=== PATIENT | female | born 1965 | race Two or more races ===

== ENCOUNTER 2025-04-01 12:57 | Outpatient (CLI) | payer OTHER, SELFPAY ==
--- NOTE | 2025-04-01 13:00 | MM_ITS ---
PROCEDURE INFORMATION: Exam: MG Bilateral Screening 3D Mammography Exam date and time: 04/01/2025 1:09 PM Age: 59 years old Clinical indication: Screening exam TECHNIQUE: Imaging protocol: Bilateral Screening tomosynthesis and 2D mammography including computer-aided detection (CAD) when performed. COMPARISON: No relevant prior studies available. FINDINGS: MAMMOGRAPHY: Breast composition: There are scattered areas of fibroglandular density. Mass: No suspicious masses. Architectural distortion: None. Calcifications: No suspicious calcifications. Asymmetric density: None. Skin thickening: None. Axillary adenopathy: None. IMPRESSION: No mammographic evidence of malignancy. Annual screening is recommended unless otherwise clinically indicated. ASSESSMENT: BI-RADS 1, Negative.
--- NOTE | 2025-04-01 13:00 | CT_ITS ---
FINAL REPORT TECHNIQUE: Thin section axial images were obtained from skull base to vertex without contrast. Coronal reconstruction images were obtained from the axial data. Exam was performed using dose reduction techniques such as automated exposure control, adjustment of the mA and kV according to patient size, and use of iterative reconstruction technique. CLINICAL HISTORY: fall x 1 year ago. left side pain, confusion and memory loss FINDINGS: There is no mass effect or midline shift. There is no hydrocephalus. There is no intracranial hemorrhage. The posterior fossa is without acute abnormality. The basilar cisterns are preserved. The soft tissues are without acute abnormality. No acute osseous abnormality is identified. IMPRESSION: No acute intracranial abnormality. Reviewed, Interpreted and Dictated by Judith Li MD Transcribed by Tashia Wilson Authenticated and [facility]
== END 2025-04-01 23:59 | disposition home or self-care (01) ==
LOC: RAD 12:57
PROVIDERS: PCP Nurse Practitioner Family; Visit Provider Nurse Practitioner Family
DX: Z12.31 Encounter for screening mammogram for malignant neoplasm of breast (principal); R92.323 Mammographic fibroglandular density, bilateral breasts; R41.3 Other amnesia; Z91.81 History of falling; R41.0 Disorientation, unspecified
CPT/HCPCS: 70450; 77063; 77067

== ENCOUNTER 2025-05-21 08:19 | Day surgery (SDC) | payer OTHER, SELFPAY ==
[2025-05-19 14:55] VITALS: BMI 39.1
[2025-05-21] VITALS (7 sets, daily range): BP systolic 99–156; BP diastolic 56–89; PULSE 82–106; RESP 16–18; TEMP 36.1–36.4; O2SAT 93–100; BMI 39.1
--- NOTE | 2025-05-21 07:11 | EXP.HP ---
History of Present Illness *Admission Date: 05/21/25 *Reason for visit:: Screening colonoscopy *History of present illness: Mrs. Anne is a 59-year-old female who is here for initial screening colonoscopy. The examination is deemed medically necessary for screening colonoscopy. The patient has been seen, interviewed and examined prior to the procedure by both myself and the anesthesia provider. [facility] Disclaimer: The information contained in this section may have been updated after the patient was seen, as this information can be updated by other users. Medical History COPD (chronic obstructive pulmonary disease) Sleep apnea Anxiety Depression History of cataract Hyperlipidemia Surgical History Delivery by section S/P carpal tunnel release Family History Other Family history of cancer Social History (Updated 05/21/25 @ 09:13 by Damaso Jaramillo CRNA) Smoking Status: Current some day smoker alcohol intake: current substance use type: denies use current occupational status: unemployed Travel in the last 8 weeks?: None Have you lived/traveled outside [place] in past 30 days?: No Contact w/someone who lives/traveled outside US past 30 days?: No Exposure to someone with infectious disease in past 14 days?: No Do you have a fever (greater than 100.4 F or 38 C)?: No Have you tested positive for COVID-19?: No Exposed to someone with COVID-19 in past 14 days?: No Do you have a sore throat?: No Do you have a cough?: No Do you have any weakness?: No Are you experiencing any nausea/vomitting?: Yes Do you have any diarrhea?: No Are you experiencing any unusual bleeding?: No Do you have any muscle aches/pain?: No Do you have any abdominal pain?: No Are you experiencing loss of taste or smell?: No Review of Systems Review of Systems Review of systems (narrative): Negative *Cardiovascular Comments: Negative *Gastrointestinal Comments: Negative *Genitourinary Comments: Negative *Musculoskeletal Comments: Negative *Neurologic Comments: Negative Meds Home Medications and Allergies Home Medications ?Medication ?Instructions ?Recorded ?Confirmed ?Type budesonide-formoterol HFA 80 1 inh inhalation BID 05/19/25 05/19/25 History mcg-4.5 mcg/actuation aerosol inhaler (Symbicort) diclofenac sodium 75 mg 75 mg PO BID 05/19/25 05/19/25 History tablet,delayed release quetiapine 25 mg tablet 25 mg PO HS 05/19/25 05/19/25 History rosuvastatin 10 mg tablet 10 mg PO DAILY 05/19/25 05/19/25 History New Prescriptions to Start Prescriptions: Allergies Allergy/AdvReac Type Severity Reaction Status Date / Time No Known Allergies Allergy Verified 05/21/25 08:46 Exam Data for Last 24 hours I & O for Last 24 hours: Intake & Output 05/18/25 05/19/25 05/20/25 05/21/25 23:59 23:59 23:59 23:59 Weight 235 lb *Routine HEENT Exam Head: Present normocephalic Eye: Present EOMI and PERRL ENT: Present mucous membranes moist *Routine Neck Exam Neck: Present supple *Routine Respiratory Exam Respiratory: Present CTA bilaterally *Routine Cardiovascular Exam Cardiovascular: Present RRR *Routine Abdominal Exam Abdominal: Present soft and normoactive bowel sounds; Absent tenderness *Routine Rectal Exam Rectal:: deferred *Routine Genitalia Exam Genitalia:: deferred *Routine Extremities Exam Extremities: Absent cyanosis, clubbing or edema *Routine Skin Exam Skin: Present warm; Absent rash *Routine Neurological Exam Neurological: Present alert and oriented X3 Assessment and Plan *Assessment and plan (1) Screening for colon cancer: Status: Acute Category: Medical Code(s): Z12.11 - Encounter for screening for malignant neoplasm of colon Plan A/P: 1. Screening for colon cancer is the preprocedural diagnosis. The patient will be anesthetized/sedated using MAC sedation. The patient has been seen and examined. Cardiac and lung assessment prior to the examination is stable. Proceed with planned screening colonoscopy.
[2025-05-21] MEDS: LACTATED RINGERS 1000ML 1,000 ML 50 ML IV (08:45)
[2025-05-21] MEDS: ONDANSETRON 4MG/2ML VIAL 4 MG IV (08:50)
--- NOTE | 2025-05-21 09:12 | P.PNANES_ITS ---
[facility] Disclaimer: The information contained in this section may have been updated after the patient was seen, as this information can be updated by other users. Medical History COPD (chronic obstructive pulmonary disease) Sleep apnea Anxiety Depression History of cataract Hyperlipidemia Surgical History Delivery by section S/P carpal tunnel release Family History Other Family history of cancer Social History (Updated 05/21/25 @ 08:43 by Chitra Panda RN) Smoking Status: Current some day smoker alcohol intake: current substance use type: denies use current occupational status: unemployed Travel in the last 8 weeks?: None [facility] Anesthesia Checklist Patient Identification Patient Identification: Arm Band and Verbal (Name & ) Structural Data Admitted From: Home Planned Operative Procedure/s: colonscopy Verified Documents: Surgical Consent NPO Status Verified Time NPO: 00:00 Additional verifications Anesthesia Reactions: No Airway Assessment Mallampati Score:: Class II C-Spine Mobility Assessed: Yes TMJ Mobility Assessed: Yes Dentition: Edentulous Neurological Assessment Level of Consciousness: Awake, Alert and Appropriate Hx Seizures: No Numbness or tingling in extremities: No Anesthesia Plan Anesthesia Risk discussed: Yes Anesthesia Plan: Verified ASA Class: II Anesthesia Type: MAC
--- NOTE | 2025-05-21 09:24 | HMH.PROCNOTE ---
[facility] Procedure Note Date: 05/21/25 Time: 10:08 Procedure Note:: Colonoscopy Procedure Report: Colonoscopy with EMR (endoscopic mucosal resection (submucosal injection, snare cautery and Endo Clip placement)) and cold snare polypectomy Endoscopist: Rito Zaldivar II, MD Referring physician: JOHNY Capellan, [facility], [address] [facility] [place] [address] Date of Procedure: May 21, 2025 Equipment: Olympus [id number] adult colonoscope Sedation: MAC sedation Indication: Mrs. Anne is a 59-year-old female who is here for initial screening colonoscopy. She reports no rectal bleeding, weight loss or family history of colon cancer. Since COVID, she has had some bowel urgency and diarrhea. She also has had intermittent right sided abdominal pain for years that radiates into the right flank. Procedure: Prior to the procedure, a history and physical exam was performed, and patient's medications and allergies were reviewed. The risks, benefits and alternatives of the sedation and procedure were discussed with the patient. All questions were answered and informed consent was obtained. The patient was brought to the procedure room. Patient identification and proposed procedure were verified by the physician and the nurse. The patient was placed in a left lateral decubitus position and the scope was passed under direct vision. Throughout the procedure, the patient's blood pressure, pulse, and oxygen saturations were monitored continuously. The colonoscopy was accomplished without difficulty. The patient tolerated the procedure well. Findings: On digital rectal examination there was normal rectal tone. There were no external hemorrhoids. The colonoscope was introduced through the anal canal to the rectum and advanced to the cecum. The ileocecal valve and appendiceal orifice were identified. The scope was advanced a short distance into the ileum which appeared grossly normal. The scope was then withdrawn into the colon. There were 4 polyps (cecum x 1 (6 mm), ascending x 1 (8 mm) and descending x 2 (4 and 5 mm)). These were all removed via cold snare polypectomy. There were scattered diverticuli throughout the descending and sigmoid colon (LEFT colon). Within the rectum was a large bulbous 3.2 cm polyp with adenomatous/villous macroscopic appearance consistent with a large tubulovillous adenoma of the rectum. This was approximately 3 cm from the anal verge. The base of the polyp was injected with 10 mL of Eleview and an additional 5 to 7 mL of saline to raise the polyp submucosally. The polyp was removed in piecemeal resection in its entirety using snare cautery and at the end cold snare polypectomy. After complete removal, the polypectomy site was closed with 3 endoclips with closure of the polypectomy site. Upon retroflexion within the rectum there were grade 1-2 internal hemorrhoids. The preparation was excellent throughout with [place] Preparation Score of 9. The cecal time was 22 minutes. Impression: 1. Large 3.2 cm rectal polyp (probable tubulovillous adenoma) status post EMR removal 2. Additional diminutive colonic polyps x 4 3. Mild left-sided diverticulosis 4. Grade 1-2 internal hemorrhoids Plan: I will follow-up the polyp histology and recommend repeat sigmoidoscopy in 3 to 6 months to ensure complete excision of the large rectal advanced adenoma. I will discuss the findings with the patient and family.
--- NOTE | 2025-05-21 10:19 | ECG_ITS ---
APPROVED REPORT Exam: Resting ECG HR:97 bpm ECG Measurements Heart Rate 97 AXES NV 137 P 39 QRSd 79 QRS 18 QT 338 T 71 QTc 393 Conclusion SINUS RHYTHM WITH SINUS ARRHYTHMIA LOW QRS VOLTAGE IN PRECORDIAL LEADS [QRS DEFLECTION < 1.0 mV IN CHEST LEADS] BORDERLINE ECG UNCONFIRMED REPORT Electronically signed by : Spenser Greene MD 05/23/2025 07:56:25
[2025-05-21 10:48] LABS: Chloride 106 mmol/L (98-107); Potassium 4.5 mmoL/L (3.5-5.1); Sodium 142 mmol/L (136-145)
[2025-05-21 10:51] LABS: Anion Gap 11.5 mEq/L (5-15); Blood Urea Nitrogen 14 mg/dl (7-17); Calcium 10.1 mg/dl (8.4-10.2); Carbon Dioxide 29 mmol/L (22.0-30.0); Creatinine Clearance Estimated 113 mL/min (50-200); Creatinine,Serum 0.90 mg/dl (0.52-1.04); Estimated Glomerular Filt Rate 64 ml/min (>60); GFR (African American) 78 ML/MIN (>60); Glucose 113 mg/dl (74-100)
== END 2025-05-21 11:07 | disposition home or self-care (01) ==
PROVIDERS: Nurse Anesthetist, Certified Registered; PCP Nurse Practitioner Family; Visit Provider Internal Medicine Gastroenterology
PROC: 0DJD8ZZ Inspection of Lower Intestinal Tract, Via Natural or Artificial Opening Endoscopic (ICD-10-PCS; CPT 45378; principal; 2025-05-21 09:30)
DX: Z12.11 Encounter for screening for malignant neoplasm of colon (principal); D12.8 Benign neoplasm of rectum; D12.0 Benign neoplasm of cecum; D12.2 Benign neoplasm of ascending colon; K63.5 Polyp of colon; K57.30 Diverticulosis of large intestine without perforation or abscess without bleeding; K64.0 First degree hemorrhoids; K64.1 Second degree hemorrhoids; J44.9 Chronic obstructive pulmonary disease, unspecified; E78.5 Hyperlipidemia, unspecified; F17.200 Nicotine dependence, unspecified, uncomplicated; Z79.899 Other long term (current) drug therapy
CPT/HCPCS: 45385; 45390; 36415; 80048; 93005; J2003; J2405; J2704; J7120

== ENCOUNTER 2025-07-16 09:59 | Outpatient (CLI) | payer OTHER, SELFPAY ==
--- OUTSIDE RECORDS SUMMARY | 2025-07-10 10:40 | XMS_ITS | Encounter Summary ---
Author Organization [facility] Address [address] [place] [address] Care Team Providers Care Vein Pumper Name Role Phone Cristal Kramer APRN Primary Care Provider [phone] Reason for Referral * Imaging (Routine) - Authorized Specialty Diagnoses / Procedures Referred By Bang wei Referred To Contact Diagnoses RUQ pain Procedures US Abdomen RUQ [place] [address] Phone: tel: fax: Referral ID Status Reason Start Date Expiration Date V isits Requested Visits Authorized [id number] Authorized 07/10/2025 01/09/2027 1 1 Reason for Visit * Reason Comments Flank Pain Joint Swelling knee Encounter Details Date Type Department Care Team (Late st Contact Info) Description 07/10/2025 10:40 AM EDT Office Visit [facility] [address] [place] [address] Cristal Kramer APRN [address] [place] [address] Dyslipidemia (Primary Dx); Mixed anxiety [...] any time in the past 12 m [facility], were you homeless or living in a fci (including now)? Patient declined 03/05/2025 AUDIT-C Answer [...] Recorded In the past 12 months has [employer], gas, oil, or water [employer] threatened to shut off services in your [...] Indicated 07/10/2025 10:37 AM Varsha Payne * If you checked off any problems on this questionnaire so far, Question Answer Date of Assessment Author How difficult have these problems made it for you to do your work, take care of things at home, or get along with other people? Somewhat difficult 07/10/2025 10:37 AM Brenden Payne i * How difficult have these problems made it for you to do your work, take care of things at home, or get along with other people? Answer Date of Assessment Author Somewhat difficult 07/10/2025 10:37 AM Varsha Payne * Question Answer Date of Assessment Author 1. Wish to be (Past 1 Month) No 025 10:37 AM EDT Varsha Buck 2. Non-Specific Active Suici justice Thoughts (Past 1 Month) No 07/10/2025 10:37 AM EDT Varsha Buck 6. Suicidal Behavior (Lifetime) No 5 10:37 AM EDT Varsha Buck documented as of this encounter Miscellaneous Notes * Progress Notes - Cristal Kramer, ROLLER MILL OPERATOR - 07/10/2025 10:40 AM EDT Subjective Patient [...] EDT Procedure Visit Obstetrics & Gynecology [address] [place] [address] Fred Dave MD [address] [place] [address] Scheduled Orders Name Type Priority [...] Ketones, Urine Trace(A) Negative mg/dL POCT Specific [place], Urine 1.025 POCT Blood, Urine Negative Negative POCT pH, Urine 5.5 5.0 to 8.0 POCT Protein, Urine Trace(A) Negative mg/dL POCT Urobilinogen, Urine 1 0.2, 1 E.U./dL POCT Nitrite, Urine Negative Negative POCT Leukocyte Esterase, Urine Negative Negative Test Strip Lot Number [id number] Test Strip Lot Expiration [id number] Urine Urine specimen obtained by clean catch [...] documented as of this encounter Care Teams Vein Pumper Relationship Specialty Start Date End Date Cristal Kramer, [place] [address] PCP - General Family Medicine 03/05/25 documented as of this encounter
--- OUTSIDE RECORDS SUMMARY | 2025-07-16 10:02 | XMS_ITS | Encounter Summary ---
Author Organization [facility] Address [address] [place] [address] Care Team Providers Care Intermodal Customer Service Name Role Phone Cristal Kramer APRN Primary Care Provider [phone] Kathleen Ann Unavailable Unavailable Reason for Visit * Reason Comments Health Maint. RR Encounter Details Date Type Department Care Team (Late st Contact Info) Description 07/14/2025 Patient Outreach [facility] [address] [facility], [address] [place] [address] Kathleen Ann Health Maint. (RR) Social History Tobacco Use Types Packs/Day Years Used Date Smoking Tobacco: Former Cigarettes 2 - 1987 Passive Smoke Exposure: Past Smokeless Tobacco: Never Comments:Does use a vape pen Alcohol Use [...] any time in the past 12 m [facility], were you homeless or living in a [facility] (including now)? Patient declined 03/05/2025 AUDIT-C Answer [...] Recorded In the past 12 months has th e electric, gas, oil, or water company threatened to shut off services in your home? Patient declined 03/05/2025 Comments No Sex and Gender Information Value Date Recorded Sex Assigned at Not on file Legal Sex Female 1:45 PM EDT Gender Identity Not on file Sexual Orientation Not on file documented as of this encounter Miscellaneous Notes * Progress Notes - Kathleen Ann - 07/14/2025 10:49 AM EDT Records Request Outreach 07/14/2025 Records Request [x] Needed: Yes [x] Records Requested (check all that apply) [x] CRC [] Mammogram [] PAP [] Immunizations [] Other: Action Plan [x] Outreach completed: Follow-up Outcome: Received colonoscopy records from [facility] via fax. [x] RR Status: Received [x] No follow-up needed Follow-up scheduled for: N/A Additional Information (if needed): N/A Completed by: Kathleen Ann documented in this encounter Plan of Treatment Upcoming Encounters Date Type Department Care Team (Late st Contact Info) Description 05/18/2026 1:30 PM EDT Procedure Visit Obstetrics & Gynecology [address] [place] [address] Fred Dave MD [address] [place] [address] documented as of this encounter Visit Diagnoses Not on filedocumented in this encounter Additional Health Concerns Assessment Noted Time PHQ-9 Depression Total Score: 18 025 10:37 AM EDT A fall risk assessment has been complete d for the patient 05/16/2025 1:28 PM EDT A Body Mass Index follow-up plan has been documented for the patient 07/13/2025 7:51 PM EDT documented as of this encounter Care Teams Intermodal Customer Service Relationship Specialty Start Date End Date Cristal Kramer APRN [address] [place] [address] PCP - General Family Medicine 03/05/25 Wages, Kathleen Mota Clinical A Auxiliary 07/14/2507/14 documented as of this encounter
--- OUTSIDE RECORDS SUMMARY | 2025-07-16 10:02 | XMS_ITS | Encounter Summary ---
Author Organization [facility] Address [address] [place] [address] Care Team Providers Care Crutcher Helper Name Role Phone Cristal Kramer APRN Primary Care Provider [phone] Encounter Details Date Type Department Care Team (Latest Contact Info) Description 07/10/2025 Travel Social History Tobacco Use Types Packs/Day Years Used Date Smoking Tobacco: Former Cigarettes 1987 Passive Smoke Exposure: Past Smokeless Tobacco: [...] any time in the past 12 m [facility], were you homeless or living in a skilled nursing (including now)? Patient declined 03/05/2025 AUDIT-C Answer [...] on file documented as of this encounter Functional Status * Over the past 2 weeks, how often have you been bothered by any of the following problems? Question Answer Date of Assessment Author Victoria interest or pleasure in doing things Several days 07/10/2025 10:37 AM Brenden Payne i Feeling down, depressed, or hopeless More than half the days 07/10/2025 10:37 AM Varsha Payne Patient Health Questionnaire-2 Score 3 07/10/2025 10:37 AM Varsha Payne * Question Answer Date of Assessment Author Trouble falling or staying asleep, or sleeping too much Nearly every day 07/10/2025 10:37 AM Varsha Payne Feeling tired or having little energy More than half the days 07/10/2025 10:37 AM Varsha Payne A Poor appetite or overeating More than aguilar lf the days 07/10/2025 10:37 AM Varsha Payne A Feeling bad about yourself - or that you are a failure or have let yourself or your family down More than half the days 07/10/2025 10:37 AM Varsha Payne Trouble concentrating on things, such as reading the newspaper or watching television Nearly every day 07/10/2025 10:37 AM Varsha Payne A Moving or speaking so slowly that other [...] other people? Somewhat difficult 07/10/2025 10:37 AM EDT Heber, Lesl i A * How difficult have these problems made it for you to do your work, take care of things at home, or get along with other people? Answer Date of Assessment Author Somewhat difficult 07/10/2025 10:37 AM EDT Varsha Buck * Question Answer Date of Assessment Author 1. Wish to be (Past 1 Month) No 025 10:37 AM EDT Varsha Bukc 2. Non-Specific Active Suici justice Thoughts (Past 1 Month) No 07/10/2025 10:37 AM EDT Varsha Buck 6. Suicidal Behavior (Lifetime) No 10:37 AM EDT Varsha Buck documented as of this encounter Plan of Treatment Upcoming Encounters Date Type Department Care Team (Late st Contact Info) Description 05/18/2026 1:30 PM EDT Procedure Visit Obstetrics & Gynecology [address] [place] [address] Fred Dave MD [address] [place] [address] documented as of this encounter [...] documented as of this encounter Care Teams Crutcher Helper Relationship Specialty Start Date End Date Cristal Kramer, MANAGER BODY [address] [place] [address] PCP - General Family Medicine 03/05/25 documented as of this encounter
--- OUTSIDE RECORDS SUMMARY | 2025-07-16 10:02 | XMS_ITS | Encounter Summary ---
Author Organization [facility] Address [address] [place] [address] Care Team Providers Care Brooch Maker Novelty Name Role Phone Cristal Kramer APRN Primary Care Provider [phone] Kathleen Ann Unavailable Unavailable Reason for Visit * Reason Comments Med Refill Encounter Details Date Type Department Care Team (Late st Contact Info) Description 04/24/2025 Refill [facility] [address] [place] [address] Cristal Kramer, KHADIJAH [address] [place] [address] Vitamin D deficiency Social History Tobacco Use Types Packs/Day Years Used Date Smoking Tobacco: Former Cigarettes 1987 Passive Smoke Exposure: Past Smokeless Tobacco: Never Comments:Does use a vape pen Alcohol Use Standard Drinks/Week Comments Yes 4 (1 standard drink = 0.6 oz pure alcohol) drank x 20 years. Havent drank in a few months Humiliation, [...] Answer Date Recorded Patient Health Questionnaire-2 Score 0 03/05/2025 Hunger Vital Sign Answer Date Recorded Within [...] Answer Date Recorded Patient Health Questionnaire-9 Score 0 03/05/2025 Housing Stability Vital Sign Answer Casey e Recorded In the last 12 months, was t here a time when you were not able to pay the mortgage or rent on time? Patient declined 03/05/20 25 In the past 12 months, how m any times have you moved where you were living? 1 03/05/2025 At any time in the past 12 m [facility], were you homeless or living in a alf (including now)? Patient declined 03/05/2025 Safety and Environment Answer Date Germán rded [...] in your home? Patient declined 03/05/2025 Comments Unknown Sex and Gender Information Value Date Recorded Sex Assigned at Not on file Legal Sex Female 1:45 PM EDT Gender Identity Not on file Sexual Orientation Not on file documented as of this encounter Plan of Treatment Upcoming Encounters Date Type Department Care Team (Safia Contact Info) Description 05/18/2026 1:30 PM EDT Procedure Visit Obstetrics & Gynecology [address] [place] [address] Fred Dave MD [address] [place] [address] documented as of this encounter Visit Diagnoses Diagnosis Vitamin D deficiency documented in this encounter Additional Health Concerns Assessment Noted Time PHQ-9 Depression Total Score: 0 03/05/20 1:14 PM EDT A Body Mass Index follow-up plan has been documented for the patient 04/02/2025 3:54 PM EDT documented as of this encounter Care Teams Brooch Maker Novelty Relationship Specialty Start Date End Date Cristal Kramer APRN [address] [place] [address] PCP - General Family Medicine 03/05/25 Kathleen Ann Clinical Sales And Management Trainee 07/14/2507/14 documented as of this encounter
--- OUTSIDE RECORDS SUMMARY | 2025-07-16 10:02 | XMS_ITS | Encounter Summary ---
Author Organization [facility] Address [address] [place] [address] Care Team Providers Care Plastic And Reconstructive Surgeon Name Role Phone Cristal Kramer APRN Primary Care Provider [phone] Encounter Details Date Type Department Care Team (Latest Contact Info) Description 07/08/2025 Travel Social History Tobacco Use Types Packs/Day [...] Date Recorded Patient Health Questionnaire-2 Score 0 05/16/2025 Hunger Vital Sign Answer Date Recorded Within [...] any time in the past 12 m [facility], were you homeless or living in a [place] [facility] care facility (including now)? Patient declined 03/05/2025 AUDIT-C Answer [...] Visit Obstetrics & Gynecology [address] [place] [address] Fred Dave MD [address] [place] [address] documented as of this encounter Visit Diagnoses Not on filedocumented in this encounter Additional Health Concerns Assessment Noted Time PHQ-9 Depression Total Score: 0 03/05/20 1:14 PM EDT A fall risk assessment has been complete d for the patient 05/16/2025 1:28 PM EDT A Body Mass Index follow-up plan has been documented for the patient 05/16/2025 1:55 PM EDT documented as of this encounter Care Teams Plastic And Reconstructive Surgeon Relationship Specialty Start Date End Date Cristal Kramer APRN [address] [place] [address] PCP - General Family Medicine 03/05/25 documented as of this encounter
--- OUTSIDE RECORDS SUMMARY | 2025-07-16 10:02 | XMS_ITS | Encounter Summary ---
Author Organization [facility] Address [address] [place] [address] Care Team Providers Care Physical Education Professor Name Role Phone Cristal Kramer INTERACTIVE MEDIA MARKETING SPECIALIST Primary Care Provider [phone] Reason for Visit * Reason Onset Date Comments Prior-authorization/insurance Verification 05/27 Encounter Details Date Type Department Care Team (Late st Contact Info) Description 05/27/2025 Telephone [facility] Medicine [address] [place] [address] Cristal Kramer, INTERACTIVE MEDIA MARKETING SPECIALIST [address] [place] [address] Prior-authorization/ins urance Verification Social History Tobacco Use Types Packs/Day Years [...] any time in the past 12 m [facility], were you homeless or living in a senior living (including now)? Patient declined 03/05/2025 AUDIT-C Answer [...] EDT Procedure Visit Obstetrics & Gynecology [address] [place] [address] Fred Dave MD [address] [place] [address] documented as of this encounter [...] documented as of this encounter Care Teams Physical Education Professor Relationship Specialty Start Date End Date Cristal Kramer APRN [address] [place] [id number] PCP - General Family Medicine 03/05/25 documented as of this encounter
--- OUTSIDE RECORDS SUMMARY | 2025-07-16 10:02 | XMS_ITS | Encounter Summary ---
Author Organization Address [address] [place] [address] Care Team Providers Care Dust Mixer Name Role Phone Cristal Kramer GLOVE CUTTER Primary Care Provider [phone] Kathleen Ann Unavailable Unavailable Reason for Visit * Reason Comments Med Refill Encounter Details Date Type Department Care Team (Late st Contact Info) Description 06/23/2025 Refill [facility] [address] [place] [address] Cristal Kramer, KHADIJAH [address] [place] [address] Bilateral primary osteoarthritis of knee Social History Tobacco Use Types Packs/Day Years [...] any time in the past 12 m [facility], were you homeless or living in a half-way (including now)? Patient declined 03/05/2025 AUDIT-C Answer [...] EDT Procedure Visit Obstetrics & Gynecology [address] [place] [address] Fred Dave MD [address] [place] [address] documented as of this encounter Visit Diagnoses Diagnosis Bilateral primary osteoarthritis of knee documented in this encounter Additional Health Concerns Assessment Noted Time PHQ-9 Depression Total Score: 0 03/05/20 1:14 PM EDT A fall risk assessment has been complete d for the patient 05/16/2025 1:28 PM EDT A Body Mass Index follow-up plan has been documented for the patient 05/16/2025 1:55 PM EDT documented as of this encounter Care Teams Dust Mixer Relationship Specialty Start Date End Date Cristal Kramer, KHADIJAH [address] [place] [address] PCP - General Family Medicine 03/05/25 Kathleen Ann Clinical Termite Control Representative 07/14/2507/14 documented as of this encounter
--- OUTSIDE RECORDS SUMMARY | 2025-07-16 10:02 | XMS_ITS | Encounter Summary ---
Author Organization [facility] Address [address] [place] [address] Care Team Providers Care Nutrition Aide Name Role Phone Cristal Kramer CRIME SCENE PHOTOGRAPHER Primary Care Provider [phone] Reason for Visit * Reason Onset Date Comments Med Refill 06/07/2025 Encounter Details Date Type Department Care Team (Late st Contact Info) Description 06/07/2025 Refill [facility] [address] [place] [address] Cristal Kramer, CRIME SCENE PHOTOGRAPHER [address] [place] [address] Mild intermittent asthma without complication Social History Tobacco Use Types Packs/Day Years Used Date Smoking Tobacco: Former Cigarettes 2 1987 Passive Smoke Exposure: Past Smokeless Tobacco: [...] any time in the past 12 m [facility], were you homeless or living in a correction (including now)? Patient declined 03/05/2025 AUDIT-C Answer [...] th e electric, gas, oil, or water [employer] threatened to shut off services in your home? Patient declined 03/05/2025 Comments No Sex and Gender Information Value Date Recorded Sex Assigned at Not on file Legal Sex Female 1:45 PM EDT Gender Identity Not on file Sexual Orientation Not on file documented as of this encounter Miscellaneous Notes * Telephone Encounter - Catia Londono, PharmD - 06/11/2025 8:53 AM EDT 1 medication(s) has been approved per protocol. documented in this encounter Plan of Treatment Upcoming Encounters Date Type Department Care Team (Late st Contact Info) Description 05/18/2026 1:30 PM EDT Procedure Visit Obstetrics & Gynecology [address] [place] [address] Fred Dave MD [address] [place] [address] documented as of this encounter Visit Diagnoses Diagnosis Mild intermittent asthma without complication documented in this encounter Additional Health Concerns Assessment Noted Time PHQ-9 Depression Total Score: 0 03/05/20 1:14 PM EDT A fall risk assessment has been complete d for the patient 05/16/2025 1:28 PM EDT A Body Mass Index follow-up plan has been documented for the patient 05/16/2025 1:55 PM EDT documented as of this encounter Care Teams Nutrition Aide Relationship Specialty Start Date End Date Cristal Kramer APRN [address] [place] [address] PCP - General Family Medicine 03/05/25 documented as of this encounter
--- OUTSIDE RECORDS SUMMARY | 2025-07-16 10:02 | XMS_ITS | Clinical Summary ---
Author Organization [facility] Address [address] [place] [address] Care Team Providers Care Electrogalvanizing Machine Operator Name Role Phone Cristal Kramer APRN Primary Care Provider [phone] Allergies Active Allergy Reactions Criticality Noted Date Comments Codeine Nausea,Vomiting 03/05/2025 Medications albuterol 108 (90 Base) MCG/ACT inhalerIndications :Mild intermittent asthma without complication Inhale 2 puffs every 4 hours as needed for wheezing or shortness of breath. 1 each 11 5 Active rosuvastatin (Crestor) 10 MG tabletIndications: Dyslipidemia Take 1 tablet by mouth daily. 90 tablet 1 5 Active diclofenac (Voltaren) 75 MG EC tabletIndications: Bilateral primary osteoarthritis of knee Take 1 tablet by mouth 2 times a day as needed (knee pain). Do not crush, chew, or split. 60 tablet 2 5 Active QUEtiapine (SEROquel) 25 MG tabletIndications: Primary insomnia,Major depressive disorder, recurrent, moderate (CMS/HCC) Take 1 tablet by mouth nightly. 30 tablet 5 5 Active budesonide-formote rol (Symbicort) 80-4.5 MCG/ACT inhalerIndications :Mild intermittent asthma without complication Inhale 2 puffs 2 times a day. Rinse mouth with water after use to reduce aftertaste and incidence of candidiasis. Do not swallow. 30.6 g 5 Active escitalopram (Lexapro) 5 MG tabletIndications: Mixed anxiety and depressive disorder Take 1 tablet by mouth daily. 30 tablet 5 5 Active Active Problems No known active problems Encounters Date Type Department Care Team Description 07/14/2025 Patient Outreach [facility] [address], [address] [place] [address] Mdcorey Kathleen D [facility] Main. (RR) 07/14/2025 Patient Outreach [facility] [address], [address] [place] [address] Md[facility]y Kathleen D [facility] Main. 07/10/2025 10:40 AM EDT Office Visit [facility] [address] [place] [address] Cristal Kramer APRN Dyslipidemia (Primary Dx); Mixed anxiety and depressive disorder; Chronic pain of right knee; RUQ pain 07/10/2025 Travel 07/08/2025 Travel 06/23/2025 Refill [facility] [address] [place] [address] Cristal Kramer APRN Bilateral primary osteoarthritis of knee 06/07/2025 Refill [facility] [address] [place] [address] Cristal Kramer APRN Mild intermittent asthma without complication 05/27/2025 Telephone [facility] [address] [place] [address] Cristal Kramer APRN Prior-authorization/in surance Verification 05/26/2025 Results Follow-Up Ob[facility]etrics [facility] Gynecology [address] [place] [address] Fred Dave MD 05/16/2025 1:30 PM EDT Office Visit Obstetrics & Gynecology [address] [place] [address] Fred Dave MD Encounter for annual routine gynecological examination (Primary Dx); Vaginal odor 05/16/2025 Travel 05/06/2025 1:20 PM EDT Office Visit [facility] [address] [place] [address] Cristal Kramer APRN Bacterial vaginosis (Primary Dx); Vitamin B12 deficiency 05/06/2025 Travel 05/02/2025 Refill [facility] [address] [place] [address] Cristal Kramer APRN Vitamin D deficiency 05/01/2025 Telephone [facility] [address] [place] [address] Cristal Kramer APRN Prior-authorization/in surance Verification 04/24/2025 Refill [facility] [address] [place] [address] Cristal Kramer APRN Vitamin D deficiency from Last 3 Months Family History Medical History Relation Name Comments Lung cancer Father Heart disease Mother Relation Name Status Comments Father Mother Social History Tobacco Use Types Packs/Day Years [...] any time in the past 12 m [facility], were you homeless or living in a senior care (including now)? Patient declined 03/05/2025 AUDIT-C Answer [...] on file Sexual Orientation Not on file Last Filed Vital Signs Vital Sign Reading [...] Mass Index 39.61 07/10/2025 10:44 AM EDT Plan of Treatment Upcoming Encounters Date Type Department Care Team (Late st Contact Info) Description 05/18/2026 1:30 PM EDT Procedure Visit Obstetrics & Gynecology [address] [place] [address] Fred Dave MD [address] [place] [address] Health Maintenance Due Date Last Done Comments [facility]-DTaP,Tdap,and Td Vaccines (1 - Tdap) 1984 [facility]-Hepatitis B Vaccines (1 of 3 - 19+ 3-dose series) 1984 [facility]-Pneumococcal Vaccine: 50+ Years (1 of 2 - PCV) 1984 CT Colonography 2010 FIT-DNA 2010 FIT 2010 FOBT 2010 Sigmoidoscopy 2010 [facility]-Zoster Vaccines (1 of 2) 2015 [id number] Vaccine ( - season) 2025 [facility]-Influenza Vaccine (#1) 2025 [facility]- SDOH Screenings 09/05/2025 [facility]-Adult SDOH Screenings 09/05/2025 03/05/2025 [facility]-Infant/Child/Adol SDOH Screenings 09/05/2025 03/05/2025 [facility]-Depression Screening 07/10/2026 07/10/2025, 06/30 [facility]-Breast Cancer Screening 04/01/2027 04/01/2025 [facility]-Pap Smear 05/16/2028 05/16/2025 [facility]-Cervical Cancer Screening 05/16/2030 [facility]-HPV/Cotest 05/16/2030 05/16/2025 Colonoscopy 05/21/2035 05/21/2025, 05/21/2025 [facility]-Colorectal Cancer Screening 05/21/2035 [facility]-HIV Screening Completed 03/05/2025 [facility]-Hepatitis C Screening Completed 03/05/2025 [facility]-Obesity Intervention Completed 025, 05/16/2025, 05/06/2025, Additional history exists HPV Vaccines Aged Out No longer eligi ble based on patient's age to complete this topic [facility]-HIB Vaccines Aged Out No longer e ligible based on patient's age to complete this topic [facility]-Hepatitis A Vaccines Aged Out No longer eligible based on patient's age to complete this topic [facility]-IPV Vaccines Aged Out No longer e ligible based on patient's age to complete this topic [facility]-Rotavirus Vaccines Aged Out No lo nger eligible based on patient's age to complete this topic Procedures Procedure Name Priority Date/Time Associated Diagnosis Comments POCT URINALYSIS DIPSTICK Routine 07/10/2025 11:38 AM EDT COLONOSCOPY EXTERNAL RESULT 05/21/2025 COLONOSCOPY EXTERNAL RESULT 05/21/2025 REFERRED THINPREP PAP AND HPV (SO) Routine 05/16/2025 1:55 PM EDT Encounter for annual routine gynecological examination MAMMOGRAPHY EXTERNAL RESULTS 04/01/2025 HEPATITIS C ANTIBODY W/REFLEX TO HCV QUANT PCR Routine 03/05/2025 2:15 PM EDT Need for hepatitis C screening test HIV 1/2 ANTIBODY/ANTIGEN SCREEN WITH REFLEX TO HIV I/II DIFFERENTIATION Routine 03/05/2025 2:15 PM EDT Screening for human immunodeficiency virus from Last 3 Months or Most Recently Relevant to Health Maintenance Results * (ABNORMAL) POCT Urinalysis Dipstick (07/10/2025 11:38 AM EDT) POCT Urine Color Yellow POCT Urine Clarity Clear POCT Glucose Urine Negative Negative mg/dL POCT Bilirubin, Urine Small(A) Negative POCT Ketones, Urine Trace(A) Negative mg/dL POCT Specific [place], Urine 1.025 POCT Blood, Urine Negative Negative POCT pH, Urine 5.5 5.0 to 8.0 POCT Protein, Urine Trace(A) Negative mg/dL POCT Urobilinogen, Urine 1 0.2, 1 E.U./dL POCT Nitrite, Urine Negative Negative POCT Leukocyte Esterase, Urine Negative Negative Test Strip Lot Number [id number] Test Strip Lot Expiration [id number] Urine Urine specimen obtained by clean catch procedure / Unknown 07/10/2025 11:38 AM EDT Cristal Kramer SPECIAL PROCEDURE TECHNOLOGIST POINT OF CARE TEST ENTER/ED IT ORDERABLES Final Result * Colonoscopy External Result (05/21/2025) Anatomical Region Laterality Modality Endoscopy Narrative 05/21/2025 Ordered by an unspecified provider. External Provider GI PROCEDURE ORDERABLES Final Result * Colonoscopy External Result (05/21/2025) Anatomical Region Laterality Modality Endoscopy Narrative 05/21/2025 Ordered by an unspecified provider. External Provider GI PROCEDURE ORDERABLES Final Result * Referred ThinPrep Pap and HPV (SO) (05/16/2025 1:55 PM EDT) Pap, Source Cx/Vagina 05/23/2025 5:48 PM EDT [facility] EER Referred ThinPrep Pap and HPV See Note 05/23/2025 5:48 PM EDT [facility] PAP, THINPREP Normal 05/23/2025 5:48 PM EDT [facility]) High Risk HPV Normal 05/23/2025 5:48 PM EDT [facility] MOHINDER ORELLANA) Swab Vaginal and cervical cytologic material / Unknown Non-blood Collection / Unknown 05/16/2025 1:55 PM EDT 05/16/2025 6:34 PM EDT Narrative [facility] MOHINDER ORELLANA) - 05/23/2025 5:48 PM EDT Authorized individuals can access the [employer] Enhanced Report with an [employer] Connect account using the following link. Your local lab can assist you in obtaining the patient report if you don't have a Connect account. [email or web address] Performed By: [facility] [address] [place] [id number] Real Estate Site Analyst: Paulino Jackman MD, PhD CLIA Number: [id number] SPECIMEN PART A. Cervical, Endocervical, Vaginal, ThinPrep Pap (Drain Tile Machine Operator) FINAL DIAGNOSIS INTERPRETATION: Negative for Intraepithelial Lesion or Malignancy. SPECIMEN ADEQUACY:Satisfactory for evaluation. Endocervical/transformation zone component present. Electronically Signed Out : ctctn Performed by: [facility] [address] [place] [address] [place] [id number] Prema Lerma MD, HR-HPV: Negative Test performed by the FDA-approved Hologic (Gen-Probe) APTIMA HPV test, which detects HPV genotypes: 16, 18, 31, 33, 35, 39, 45, 51, 52, 56, 58, 59, 66, and 68. This assay has been cleared for the specimen types listed below. Other specimen types have not been validated for this assay. -Clinician-collected ThinPrep Pap cervical specimens. Performed by: [facility] [address] [place] [address] RICARDO Bahena [id number] Prema Lerma MD, us Fred Dave MD LAB REF LAB BLOOD AND FLUID ORD Final Result [facility] [address] [place] [address] * Mammography External Results (04/01/2025) Anatomical Region Laterality Modality Mammography Narrative 04/01/2025 Ordered by an unspecified provider. us External Provider IMG BI PROCEDURES Final Result * HIV 1 & 2 Antibody/Antigen Screen (03/05/2025 2:15 PM EDT) [facility] HIV 1 & 2 Antibody/Antigen Screen Non Reactive Non Reactive 03/05/2025 7:01 PM EDT [facility] Comment:Screening for HIV 1 & 2 antibodies, and P24 antigen is NONREACTIVE. No confirmatory testing is required. Blood Venous blood specimen / Unknown Venipuncture / Unknown 03/05/2025 2:15 PM EDT 03/05/2025 2:15 PM EDT Cristal Kramer APRN LAB BLOOD ORDERABLES Final Result Performing Organization Address City/[facility]/ZIP Co de Phone Number [facility] [address] [place] [address] * Hepatitis C Antibody w/Reflex to HCV Quant PCR (03/05/2025 2:15 PM EDT) [facility] Hepatitis C Antibody Negative Negative 03/05/2025 7:01 PM EDT [facility] Blood Venous blood specimen / Unknown Venipuncture / Unknown 03/05/2025 2:15 PM EDT 03/05/2025 2:15 PM EDT Cristal Kramer APRN LAB BLOOD ORDERABLES Final Result [facility] [address] [place] [address] from Last 3 Months or Most Recently Relevant to Health Maintenance Insurance [employer] [facility] MEDICAID Care Teams Electrogalvanizing Machine Operator Relationship Specialty Start Date End Date Cristal Kramer, SPECIAL PROCEDURE TECHNOLOGIST [address] [place] [address] PCP - General Family Medicine 03/05/25
--- OUTSIDE RECORDS SUMMARY | 2025-07-16 10:02 | XMS_ITS | Encounter Summary ---
Author Organization [facility] Address [address] [place] [address] Care Team Providers Care Knot Tying Operator Name Role Phone Cristal Kramer APRN Primary Care Provider [phone] Kathleen Ann Unavailable Unavailable Encounter Details Date Type Department Care Team (Late st Contact Info) Description 05/26/2025 Results Follow-Up Obstetrics & Gynecology [address] [place] [address] Fred Dave MD [address] [place] [address] Social History Tobacco Use Types Packs/Day Years [...] any time in the past 12 m [facility], were you homeless or living in a retirement (including now)? Patient declined 03/05/2025 AUDIT-C Answer [...] the past 12 months has th e [employer], gas, oil, or water company threatened to [...] Visit Obstetrics & Gynecology [address] [place] [address] Fred Dave MD [address] [place] [address] documented as of this encounter [...] documented as of this encounter Care Teams Knot Tying Operator Relationship Specialty Start Date End Date Cristal Kramer APRN [address] [place] [address] PCP - General Family Medicine 03/05/25 Kathleen Ann Clinical Medical Radiation Tech 07/14/2507/14 documented as of this encounter
--- OUTSIDE RECORDS SUMMARY | 2025-07-16 10:02 | XMS_ITS ---
Author Organization [facility] Address [address] [place] [address] Care Team Providers Care Cable Assembler Name Role Phone Cristal Kramer APRN Primary Care Provider [phone] Clinical Respiratory Tech Program Status:Closed (Closed) Start date:07/14/2025 Enrollment date:07/14/2025 End date:07/14/2025 Close reason:Patient graduated Overview This episode type is for outpatient Clinical Respiratory Tech enrolling patients in their program. Continued Care and Services Coordination
--- OUTSIDE RECORDS SUMMARY | 2025-07-16 10:02 | XMS_ITS | Encounter Summary ---
Author Organization Healthcare Address [address] [place] [address] Care Team Providers Care Product Marketing Executive Name Role Phone Cristal Kramer APRN Primary Care Provider [phone] Kathleen Ann Unavailable Unavailable Reason for Visit * Reason Comments Health Maint. Encounter Details Date Type Department Care Team (Late st Contact Info) Description 07/14/2025 Patient Outreach POPULATION HEALTH [address], [address] [place] [address] Kathleen Ann Health Maint. Social History Tobacco Use Types Packs/Day Years [...] any time in the past 12 m [facility], were you homeless or living in a jail (including now)? Patient declined 03/05/2025 AUDIT-C Answer [...] Progress Notes - Kathleen Ann - 07/14/2025 8:44 AM EDT Records Request Outreach 07/14/2025 Records Request [x] Needed: Yes [x] Records Requested (check all that apply) [x] CRC [] Mammogram [] PAP [] Immunizations [] Other: Action Plan [x] Outreach completed: Initial Outreach Outcome: Requested colonoscopy records via fax from [facility] per provider request. [x] RR Status: Submitted [x] Program Enrollment and tasks set for additional outreach Follow-up scheduled for: 07/28/2025 Additional Information (if needed): N/A Completed by: Kathleen Ann documented in this encounter Plan of Treatment Upcoming Encounters Date Type Department Care Team (Late st Contact Info) Description 05/18/2026 1:30 PM EDT Procedure Visit Obstetrics & Gynecology [address] [place] [address] Fred Dave MD [address] [place] [address] documented as of this encounter [...] documented as of this encounter Care Teams Product Marketing Executive Relationship Specialty Start Date End Date Cristal Kramer APRN [address] [place] [address] PCP - General Family Medicine 03/05/25 Wages, Kathleen Mota Clinical Machine Assistant 07/14/2507/14 documented as of this encounter
--- NOTE | 2025-07-16 10:04 | US_ITS ---
FINAL REPORT TECHNIQUE: Multiple transverse and longitudinal images CLINICAL HISTORY: RUQ PAIN FINDINGS: There is a large stone in the proximal gallbladder measuring up to 2.6 cm. There is no gallbladder wall thickening or distention. No biliary ductal dilatation is appreciated. No fluid collections are seen. Limited portions of the right liver are unremarkable. There is a hypoechoic lesion in the right kidney measuring up to 18 mm with internal echoes which may represent a complex cyst or solid mass. Pancreas is largely obscured. IMPRESSION: Cholelithiasis without acute gallbladder disease. Hypoechoic right renal lesion with differential including complex cyst versus solid mass. Reviewed, Interpreted and Dictated by Jessie Vaz MD Transcribed by Pilar Zambrano Authenticated and . [facility]
--- NOTE | 2025-07-16 10:06 | XR_ITS ---
FINAL REPORT CLINICAL HISTORY: CHRONIC KNEE PAIN. [address] REQUEST FINDINGS: RIGHT KNEE: 4 views of the right knee obtained. There is no acute fracture or dislocation. There are moderate tricompartmental degenerative changes. No joint effusion is present. Calcifications are seen overlying the patella presumably related to previous trauma. IMPRESSION: No acute fracture Reviewed, Interpreted and Dictated by Jessie Vaz MD Transcribed by Tahsia Wilson Authenticated and . [facility]
== END 2025-07-16 23:59 | disposition home or self-care (01) ==
LOC: RAD 10:00
PROVIDERS: PCP Nurse Practitioner Family; Visit Provider Nurse Practitioner Family
DX: K80.20 Calculus of gallbladder without cholecystitis without obstruction (principal); N28.9 Disorder of kidney and ureter, unspecified; M25.561 Pain in right knee; G89.29 Other chronic pain
CPT/HCPCS: 73564; 76705

== ENCOUNTER 2025-08-05 07:56 | Outpatient (CLI) | payer OTHER, SELFPAY ==
--- OUTSIDE RECORDS SUMMARY | 2025-07-10 10:40 | XMS_ITS | Encounter Summary ---
Author Organization [facility] Address [address] [place] [address] Care Team Providers Care General Internist And Physician Leader Name Role Phone Cristal Kramer APRN Primary Care Provider [phone] Reason for Referral * Imaging (Routine) - Authorized Specialty Diagnoses / Procedures Referred By Bang wei Referred To Contact Diagnoses RUQ pain Procedures US Abdomen RUQ [place] [address] Phone: tel: fax: Referral ID Status Reason Start Date Expiration Date V isits Requested Visits Authorized [id number] Authorized 07/10/2025 01/09/2027 1 1 Reason for Visit * Reason Comments Flank Pain Joint Swelling knee Encounter Details Date Type Department Care Team (Late st Contact Info) Description 07/10/2025 10:40 AM EDT Office Visit [facility] [address] [place] [address] Cristal Kramer APRN [address] [place] [address] Dyslipidemia (Primary Dx); Mixed anxiety and depressive disorder; Chronic pain of right knee; RUQ pain Social History Tobacco Use Types Packs/Day Years Used Date Smoking Tobacco: Former Cigarettes 2 - 1987 Passive Smoke Exposure: Past Smokeless Tobacco: Never Tobacco Cessation:Counseling Given: Not Answered Comments:Does use a vape pen Alcohol Use Standard Drinks/Week Comments Yes 4 (1 standard drink = 0.6 oz pur e alcohol) Havent drank in a few months Humiliation, Afraid, Rape, and Kick questionnair e Answer Date Recorded Within the last year, have y ou been afraid of your partner or ex-partner? Patient declined 03/05/2025 Within the last year, have y ou been humiliated or emotionally abused in other ways by your partner or ex-partner? Patient declined 03/05/2025 Within the last year, have y ou been kicked, hit, slapped, or otherwise physically hurt by your partner or ex-partner? Patient declined 03/05/2025 Within the last year, have y ou been raped or forced to have any kind of sexual activity by your partner or ex-partner? Patient declined 03/05/2025 PHQ-2 Answer Date Recorded Patient Health Questionnaire-2 Score 3 07/10/2025 Hunger Vital Sign Answer Date Recorded Within the past 12 months, y ou worried that your food would run out before you got the money to buy more. Patient declined Within the past 12 months, t he food you bought just didn't last and you didn't have money to get more. Patient declined 04/2025 PRAPARE - Transportation Answer Date Re corded In the past 12 months, has l ack of transportation kept you from medical appointments or from getting medications? Patient declined 03/05/2025 In the past 12 months, has l ack of transportation kept you from meetings, work, or from getting things needed for daily living? Patient declined 03/05/2025 PHQ-9 Answer Date Recorded Patient Health Questionnaire-9 Score 18 07/10/2025 Housing Stability Vital Sign Answer Casey e Recorded In the last 12 months, was t here a time when you were not able to pay the mortgage or rent on time? Patient declined 03/05/20 25 In the past 12 months, how m any times have you moved where you were living? 1 03/05/2025 At any time in the past 12 m [facility], were you homeless or living in a custodial (including now)? Patient declined 03/05/2025 AUDIT-C Answer Date Recorded Q1: How often do you have a drink containing alc ohol? 2-4 times a month 05/06/2025 Q2: How many drinks containi ng alcohol do you have on a typical day when you are drinking? 3 or 4 05/06/2025 Q3: How often do you have si x or more drinks on one occasion? Less than monthly 05/06/2025 Safety and Environment Answer Date Germán rded Do you worry that your child may have been physically abused? Patient declined 03/05/2025 Do you worry that your child may have been sexually abused? Patient declined 03/05/2025 Are there any guns kept in o r around your home or where your child spends time? Patient declined 03/05/2025 Guns Unloaded or Locked Away Not on file 04/2025 Utilities Answer Date Recorded In the past 12 months has [email or web address], gas, oil, or water [employer] threatened to shut off services in your home? Patient declined 03/05/2025 Comments No Sex and Gender Information Value Date Recorded Sex Assigned at Not on file Legal Sex Female 1:45 PM EDT Gender Identity Not on file Sexual Orientation Not on file documented as of this encounter Last Filed Vital Signs Vital Sign Reading Time Taken Comments Blood Pressure 138/88 07/10/2025 10:44 AM EDT Pulse 84 07/10/2025 10:44 AM EDT Temperature 36.7 C (98 F) 07/10/2025 10:44 AM EDT Respiratory Rate 18 07/10/2025 10:44 AM EDT Oxygen Saturation 98% 07/10/2025 10:44 AM EDT Inhaled Oxygen Concentration - - Weight 108 kg (238 lb) 07/10/2025 10:44 AM EDT Height 165.1 cm (5' 5 ) 07/10/2025 10:44 AM EDT Body Mass Index 39.61 07/10/2025 10:44 AM EDT documented in this encounter Functional Status * Over the past 2 weeks, how often have you been bothered by any of the following problems? Question Answer Date of Assessment Author Little interest or pleasure in doing things Several days 07/10/2025 10:37 AM EDT Brenden Buck i Feeling down, depressed, or hopeless More than half the days 07/10/2025 10:37 AM EDT Varsha Buck Patient Health Questionnaire-2 Score 3 07/10/2025 10:37 AM Varsha Payne * Question Answer Date of Assessment Author Trouble falling or staying asleep, or sleeping too much Nearly every day 07/10/2025 10:37 AM Varsha Payne Feeling tired or having little energy More than half the days 07/10/2025 10:37 AM Varsha Payne Poor appetite or overeating More than aguilar lf the days 07/10/2025 10:37 AM Varsha Payne Feeling bad about yourself - or that you are a failure or have let yourself or your family down More than half the days 07/10/2025 10:37 AM Varsha Payne Trouble concentrating on things, such as reading the newspaper or watching television Nearly every day 07/10/2025 10:37 AM Varsha Payne Moving or speaking so slowly that other people could have noticed? Or the opposite - being so fidgety or restless that you have been moving around a lot more than usual. Nearly every day 07/10/2025 10:37 AM Varsha Payne Thoughts that you would be better off or hurting yourself in some way Not at all 07/10/2025 10:37 AM Varsha Payne Patient Health Questionnaire-9 Score 18 07/10/2025 10:37 AM Varsha Payne * Calculated C-SSRS Risk Score (Lifetime/Recent) Answer Date of Assessment Author No Risk Indicated 07/10/2025 10:37 AM Varsha Payne * How difficult have these problems made it for you to do your work, take care of things at home, or get along with other people? Answer Date of Assessment Author Somewhat difficult 07/10/2025 10:37 AM Varsha Payne * How difficult have these problems made it for you to do your work, take care of things at home, or get along with other people? Answer Date of Assessment Author Somewhat difficult 07/10/2025 10:37 AM Varsha Payne * Question Answer Date of Assessment Author 1. Wish to be (Past 1 Month) No 025 10:37 AM Varsha Payne 2. Non-Specific Active Suici justice Thoughts (Past 1 Month) No 07/10/2025 10:37 AM EDT Varsha Buck 6. Suicidal Behavior (Lifetime) No 10:37 AM EDT Varsha Buck documented as of this encounter Miscellaneous Notes * Progress Notes - Cristal Kramer, SUPERVISOR FINISHING ROOM - 07/10/2025 10:40 AM EDT Subjective Patient ID: Sushma Anne is a 59 y.o. female. Chief Complaint Patient presents with Flank Pain Joint Swelling knee HPI Sushma is a 59 y.o. who presents to the clinic today with acute c/o pain in side. Patient reports aRight sided pain (points to RUQ and wraps around to back--just under rib cage) x 1 month that occurs intermittently. Lasts around 30 minutes when present. Denies any nausea, vomiting, diarrhea, constipation, or dysuria. Additionally, patient Also reports a hx of Right knee pain. Has not had any imaging completed on knee. Did fall around 1.5 weeks ago and landed on that knee. Has not had any physical therapy. Anxiety/Depression/Insomnia--Is currently taking 25 mg of Seroquel nightly. Reports that she has been feeling down lately and is wondering if she may need to restart an antidepressant. She does not currently see a counselor or therapist. Reports that she does have a good support system at home. Reports no symptoms of SI/HI. PHQ score of 18 today, RODOLFO-7 score of 18. No risk indicated on C-SSRS scoring guide today. The following portions of the chart were reviewed this encounter and updated as appropriate: Tobacco Allergies Meds Problems Med Hx Surg Hx Fam Hx Current Medications[1] Review of Systems A 14 point ROS reviewed and is otherwise negative except as per HPI. Objective Blood pressure 138/88, pulse 84, temperature 36.7 ??C (98 ??F), temperature source Oral, resp. rate18, height 1.651 m (5' 5 ), weight 108 kg (238 lb), SpO2 98%, not currently . Body mass index is 39.61 kg/m??. Physical Exam Vitals reviewed. Constitutional: General: She is not in acute distress. Appearance: Normal appearance. She is obese. Cardiovascular: Rate and Rhythm: Normal rate and regular rhythm. Pulmonary: Effort: Pulmonary effort is normal. Breath sounds: Normal breath sounds. No wheezing, rhonchi or rales. Abdominal: General: Bowel sounds are normal. There is no distension. Palpations: Abdomen is soft. There is no mass. Tenderness: There is abdominal tenderness (RUQ). There is no guarding. Hernia: No hernia is present. Musculoskeletal: Right knee: Effusion (small subpatellar) and crepitus present. No swelling or erythema. Normal range of motion. Tenderness (subpatellar) present. Right lower leg: No edema. Left lower leg: No edema. Neurological: Mental Status: She is alert and oriented to person, place, and time. Psychiatric: Mood and Affect: Mood normal. Behavior: Behavior normal. Thought Content: Thought content normal. Judgment: Judgment normal. Assessment/Plan Diagnoses and all orders for this visit: Mixed anxiety and depressive disorder Chronic condition, not currently well controlled. Will order new prescription medication to begin to help control symptoms. Risks vs benefits as well as possible adverse effects/BBW discussed with patient. - escitalopram (Lexapro) 5 MG tablet; Take 1 tablet by mouth daily. Chronic pain of right knee Chronic condition with progression in symptoms. Will order xray--suspect to find degenerative changes. Possible bursitis. Will determine plan upon review of imaging. - XR Knee Right 4+ Views; Future RUQ pain Acute condition with undetermined etiology. With area patient was pointing, was hard to determine whether RUQ vs flank pain. However, upon further investigation and questioning with patient, seems jennifer more RUQ. Patient reports this began after having last colonoscopy. Will order RUQ US for further evaluation. Discussed s/s to monitor for until test completed that would require further evaluation and assessment. Patient voiced understanding. - US Abdomen RUQ; Future - POCT Urinalysis Dipstick Cristal Kramer APRN [1] Current Outpatient Medications: albuterol 108 (90 Base) MCG/ACT inhaler, Inhale 2 puffs every 4 hours as needed for wheezing or shortness of breath., Disp: 1 each, Rfl: 11 budesonide-formoterol (Symbicort) 80-4.5 MCG/ACT inhaler, Inhale 2 puffs 2 times a day. Rinse mouthwith water after use to reduce aftertaste and incidence of candidiasis. Do not swallow., Disp: 30.6g, Rfl: 0 diclofenac (Voltaren) 75 MG EC tablet, Take 1 tablet by mouth 2 times a day as needed (knee pain). Do not crush, chew, or split., Disp: 60 tablet, Rfl: 2 QUEtiapine (SEROquel) 25 MG tablet, Take 1 tablet by mouth nightly., Disp: 30 tablet, Rfl: 5 rosuvastatin (Crestor) 10 MG tablet, Take 1 tablet by mouth daily., Disp: 90 tablet, Rfl: 1 escitalopram (Lexapro) 5 MG tablet, Take 1 tablet by mouth daily., Disp: 30 tablet, Rfl: 5 documented in this encounter Plan of Treatment Upcoming Encounters Date Type Department Care Team (Late st Contact Info) Description 05/18/2026 1:30 PM EDT Procedure Visit Obstetrics & Gynecology [address] [place] [address] Fred Dave MD [address] [place] [address] Scheduled Orders Name Type Priority Associated Diagnoses Orde r Schedule XR Knee Right 4+ Views Imaging Routine Chronic pain of right knee Expected: 07/10/2025 (Approximate), Expires: 01/11/2027 US Abdomen RUQ Imaging Routine RUQ pain Expected: 07/10/2025 (Approximate), Expires: 01/11/2027 Lipid panel Lab Routine RUQ pain Dyslipidemia 1 Occurrences starting 07/10/2025 until 01/07/2027 documented as of this encounter Procedures Procedure Name Priority Date/Time Associated Diagnosis Comments POCT URINALYSIS DIPSTICK Routine 07/10/2025 11:38 AM EDT documented in this encounter Results * (ABNORMAL) POCT Urinalysis Dipstick (07/10/2025 11:38 AM EDT) POCT Urine Color Yellow POCT Urine Clarity Clear POCT Glucose Urine Negative Negative mg/dL POCT Bilirubin, Urine Small(A) Negative POCT Ketones, Urine Trace(A) Negative mg/dL POCT Specific [place], Urine 1.025 POCT Blood, Urine Negative Negative POCT pH, Urine 5.5 5.0 to 8.0 POCT Protein, Urine Trace(A) Negative mg/dL POCT Urobilinogen, Urine 1 0.2, 1 E.U./dL POCT Nitrite, Urine Negative Negative POCT Leukocyte Esterase, Urine Negative Negative Test Strip Lot Number [id number] Test Strip Lot Expiration [id number] Urine Urine specimen obtained by clean catch procedure / Unknown 07/10/2025 11:38 AM EDT Cristal Kramer APRN POINT OF CARE TEST ENTER/ED IT ORDERABLES Final Result documented in this encounter Visit Diagnoses Diagnosis Dyslipidemia- Primary Other and unspecified hyperlipidemia Mixed anxiety and depressive disorder Dysthymic disorder Chronic pain of right knee RUQ pain Abdominal pain, right upper quadrant documented in this encounter Additional Health Concerns Assessment Noted Time PHQ-9 Depression Total Score: 18 025 10:37 AM EDT A fall risk assessment has been complete d for the patient 05/16/2025 1:28 PM EDT A Body Mass Index follow-up plan has been documented for the patient 07/13/2025 7:51 PM EDT documented as of this encounter Care Teams General Internist And Physician Leader Relationship Specialty Start Date End Date Cristal Kramer, [place] [address] [address] PCP - General Family Medicine 03/05/25 documented as of this encounter
--- NOTE | 2025-08-05 07:59 | CT_ITS ---
FINAL REPORT TECHNIQUE: Pre- and postcontrast images of the abdomen were performed by computed tomography. This study was performed with techniques to keep radiation doses as low as reasonably achievable (ALARA). Individualized dose reduction techniques using automated exposure control or adjustment of mA and/or kV according to the patient's size were employed. CLINICAL HISTORY: RENAL MASS no prior COMPARISON: Ultrasound performed 07/16/2025 FINDINGS: Lung bases are clear. There are no renal stones. Irregularity is seen at the cortex of the right kidney probably related to scarring which could be from prior infection or reflux nephropathy. There is a small cyst in the upper pole of the right kidney. No solid right renal mass is seen. There is no hydronephrosis. Gallbladder is distended. Remaining solid abdominal organs are without acute abnormality. Limited evaluation of the GI tract demonstrates no evidence of obstruction. The appendix is normal. There is no lymphadenopathy or ascites. No acute osseous abnormality is seen. IMPRESSION: 1. No solid renal mass. Small right renal cyst. 2. Areas of cortical scarring in the right kidney possibly related to prior infection or reflux nephropathy. Reviewed, Interpreted and Dictated by Judith Li MD Transcribed by Tashia Wilson Authenticated and [facility]
--- OUTSIDE RECORDS SUMMARY | 2025-08-05 07:59 | XMS_ITS | Encounter Summary ---
Author Organization [facility] Address [address] [place] [address] Care Team Providers Care Ticketing Clerk Name Role Phone Cristal Kramer APRN Primary Care Provider [phone] Reason for Referral * Imaging (Routine) - Authorized Specialty Diagnoses / Procedures Referred By Bang t Referred To Contact Diagnoses Renal mass Procedures CT Renal Mass w and wo IV Contrast [place] [address] Phone: tel: fax: Referral ID Status Reason Start Date Expiration Date V isits Requested Visits Authorized [id number] Authorized 07/23/2025 01/22/2027 1 1 * Consultation (Routine) - Authorized Specialty Diagnoses / Procedures Referred By Bang wei Referred To Contact General, Endocrine & Minimally Invasive Surgery / General Surgery Diagnoses Calculus of gallbladder without cholecystitis without obstruction RUQ pain Cristal Kramer APRN [address] [place] [address] Phone: tel: fax: Referral ID Status Reason Start Date Expiration Date Visits Requested Visits Authorized [id number] Authorized Specialty Services Required 07/23/2025 01/22/2027 1 1 Encounter Details Date Type Department Care Team (Late st Contact Info) Description 07/23/2025 Orders Only [facility] [address] [address] Cristal Kramer, DRIVER GUIDE [address] [address] Calculus of gallbladder without cholecystitis without obstruction (Primary Dx); RUQ pain; Renal mass Social History Tobacco Use Types Packs/Day Years [...] any time in the past 12 m onths, were you homeless or living in a [...] Recorded In the past 12 months has e [employer], gas, oil, or water company threatened to [...] Visit Obstetrics & Gynecology [address] [place] [address] Fred Dave MD [address] [place] [address] Scheduled Orders Name Type Priority Associated Diagnoses Orde r Schedule CT Renal Mass w and wo IV Contrast Imaging Routine Renal mass Expected: 07/23/2025 (Approximate), Expires: 01/24/2027 Scheduled Referrals Name Type Priority Associated Diagnoses Orde r Schedule Ambulatory referral to General Surgery Outpatient Referral Routine Calculus of gallbladder without cholecystitis without obstruction RUQ pain 1 Occurrences starting 07/23/2025 until 01/24/2027 documented as of this encounter Visit Diagnoses Diagnosis Calculus of gallbladder without cholecystitis without obstruction- Primary RUQ pain Abdominal pain, right upper quadrant Renal mass Unspecified disorder of kidney and ureter documented in this encounter Additional Health Concerns Assessment Noted Time PHQ-9 Depression Total Score: 18 025 10:37 AM EDT A fall risk assessment has been complete d for the patient 05/16/2025 1:28 PM EDT A Body Mass Index follow-up plan has been documented for the patient 07/13/2025 7:51 PM EDT documented as of this encounter Care Teams Ticketing Clerk Relationship Specialty Start Date End Date Cristal Kramer, KHADIJAH [address] [place] [id number] PCP - General Family Medicine 03/05/25 documented as of this encounter
--- OUTSIDE RECORDS SUMMARY | 2025-08-05 07:59 | XMS_ITS | Encounter Summary ---
Author Organization [facility] Address [address] [place] [address] Care Team Providers Care Lead Instructor/Flight Attendant Name Role Phone Cristal Kramer RAILROAD TRACK INSPECTOR Primary Care Provider [phone] Encounter Details Date Type Department Care Team (Late st Contact Info) Description 07/23/2025 Telephone [facility] [address] [place] [address] Cristal Kramer APRN [address] [place] [address] Social History Tobacco Use Types Packs/Day Years [...] any time in the past 12 m [facility], were you homeless or living in a [...] encounter Miscellaneous Notes * Telephone Encounter - Maddi Marina - 07/23/2025 11:27 AM EDT Pt aware * Telephone Encounter - Addis Silver - 07/23/2025 11:23 AM EDT Cristal Kramer, KHADIJAH P [facility] Medicine Clinical Capacitor Assembler Please notify patient that RUQ US did show evidence of gall stones which is what I feel is causing her discomfort. I am going to place a referral to general surgery for them to discuss if severe enough to have gallbladder removed or if we can just monitor. In addition, ultrasound incidentally showed a spot on her kidney that will need further workup to determine what this is. Could just be a cyst, but we will need a dedicated renal CT to determine if anything more serious. I will get this ordered and they should call her to schedule. * Telephone Encounter - Addis Silvre - 07/23/2025 9:10 AM EDT LMTRC documented in this encounter Plan of Treatment Upcoming Encounters Date Type Department Care Team (Late st Contact Info) Description 05/18/2026 1:30 PM EDT Procedure Visit Obstetrics & Gynecology [address] [place] [address] Fred Dave MD [address] [place] [address] documented as of this encounter [...] documented as of this encounter Care Teams Lead Instructor/Flight Attendant Relationship Specialty Start Date End Date Cristal Kramer APRN [address] [place] [address] PCP - General Family Medicine 03/05/25 documented as of this encounter
--- OUTSIDE RECORDS SUMMARY | 2025-08-05 08:00 | XMS_ITS | Encounter Summary ---
Author Organization Healthcare Address [address] [place] [address] Care Team Providers Care Hand Paint Mixer Name Role Phone Cristal Kramer APRN Primary Care Provider [phone] Kathleen Ann Unavailable Unavailable Encounter Details Date Type Department Care Team (Late st Contact Info) Description 05/26/2025 Results Follow-Up Obstetrics & Gynecology [address] [place] [address] Fred Dave MD [address] [place] [address] Social History Tobacco Use Types [...] any time in the past 12 m [facility], were you homeless or living in a [...] the past 12 months has th e [employer], gas, oil, or water company threatened to [...] 07/10/2025 10:37 AM EDT Brenden Buck i A Feeling down, depressed, or hopeless More than half the days 07/10/2025 10:37 AM EDT Varsha Buck Patient Health Questionnaire-2 Score 3 07/10/2025 10:37 AM EDT Varsha Buck * Question Answer Date of Assessment Author Trouble falling or staying asleep, or sleeping too much Nearly every day 07/10/2025 10:37 AM EDT Varsha Buck Feeling tired or having little energy More than half the days 07/10/2025 10:37 AM EDT Varsha Buck A Poor appetite or overeating More than aguilar lf the days 07/10/2025 10:37 AM EDT Varsha Buck A Feeling bad about yourself - or that you are a failure or have let yourself or your family down More than half the days 07/10/2025 10:37 AM EDT Varsha Buck A Trouble concentrating on things, such as reading the newspaper or watching television Nearly every day 07/10/2025 10:37 AM EDVarsha De A Moving or speaking so slowly that [...] Health Questionnaire-9 Score 18 07/10/2025 10:37 AM EDT Varsha Buck * Calculated C-SSRS Risk Score (Lifetime/Recent) Answer Date of Assessment Author No Risk Indicated 07/10/2025 10:37 AM EDT Varsha Buck * How difficult have these problems made it for you to do your work, take care of things at home, or get along with other people? Answer Date of Assessment Author Somewhat difficult 07/10/2025 10:37 AM EDT Varsha Buck * How difficult have these problems made [...] EDT Procedure Visit Obstetrics & Gynecology [address] [place] [address] Fred Dave MD [address] [place] [address] documented as of this encounter Visit Diagnoses Not on filedocumented in this encounter Additional Health Concerns Assessment Noted Time PHQ-9 Depression Total Score: 0 03/05/20 25 1:14 PM EDT A fall risk assessment has been complete d for the patient 05/16/2025 1:28 PM EDT A Body Mass Index follow-up plan has been documented for the patient 05/16/2025 1:55 PM EDT documented as of this encounter Care Teams Hand Paint Mixer Relationship Specialty Start Date End Date Cristal Kramer APRN [address] [place] [address] PCP - General Family Medicine 03/05/25 Wages, Kathleen Mota Clinical Medical Professionals 07/14/2507/14 documented as of this encounter
--- OUTSIDE RECORDS SUMMARY | 2025-08-05 08:00 | XMS_ITS | Encounter Summary ---
Author Organization [facility] Address [address] [place] [address] Care Team Providers Care Aviation Electrical Technician Name Role Phone Cristal Kramer APRN Primary Care Provider [phone] Encounter Details Date Type Department Care Team [...] any time in the past 12 m [facility], were you homeless or living in a [...] days 07/10/2025 10:37 AM Brenden Payne i A Feeling down, depressed, or hopeless [...] EDT Procedure Visit Obstetrics & Gynecology [address] [place] [address] Fred Dave MD [address] [place] [address] documented as of this encounter [...] documented as of this encounter Care Teams Aviation Electrical Technician Relationship Specialty Start Date End Date Cristal Kramer APRN [address] [place] [address] PCP - General Family Medicine 03/05/25 documented as of this encounter
--- OUTSIDE RECORDS SUMMARY | 2025-08-05 08:00 | XMS_ITS ---
Author Organization [facility] Address [address] [place] [address] Care Team Providers Care Wine Maker Name Role Phone Cristal Kramer APRN Primary Care Provider [phone] Clinical High School Chemistry Teacher Program Status:Closed (Closed) Start date:07/14/2025 Enrollment date:07/14/2025 End date:07/14/2025 Close reason:Patient graduated Overview This episode type is for outpatient Clinical High School Chemistry Teacher enrolling patients in their program. Continued Care and Services Coordination
--- OUTSIDE RECORDS SUMMARY | 2025-08-05 08:00 | XMS_ITS | Clinical Summary ---
Author Organization Healthcare Address [address] [place] [address] Care Team Providers Care Workforce Specialist Name Role Phone Cristal Kramer APRN Primary Care Provider [phone] Allergies Active Allergy Reactions Criticality Noted Date [...] Encounters Date Type Department Care Team Description 07/23/2025 Telephone [facility] [address] [place] [address] Cristal Kramer APRN 07/23/2025 Orders Only [facility] [address] [place] [address] Cristal Kramer APRN Calculus of gallbladder without cholecystitis without obstruction (Primary Dx); RUQ pain; Renal mass 07/14/2025 Patient Outreach [address], [address] [place] [address] [facility] ([facility] 07/14/2025 Patient Outreach [address], [facility] [address] [place] [address] [facility] 07/10/2025 10:40 AM EDT Office Visit [facility] [address] [place] [address] Cristal Kramer APRN Dyslipidemia (Primary Dx); Mixed anxiety and depressive disorder; Chronic pain of right knee; RUQ pain 07/10/2025 Travel 07/08/2025 Travel 06/23/2025 Refill [facility] [address] [place] [address] Cristal Kramer APRN Bilateral primary osteoarthritis of knee 06/07/2025 Refill [facility] [address] [place] [address] Cristal Kramer APRN Mild intermittent asthma without complication 05/27/2025 Telephone [facility] [address] [place] [address] Cristal Kramer APRN Prior-authorization/in surance Verification 05/26/2025 Results Follow-Up [facility] Gynecology [address] [place] [address] Fred Dave MD 05/16/2025 1:30 PM EDT Office Visit Obstetrics & Gynecology [address] [place] [address] Fred Dave MD Encounter for annual routine gynecological examination (Primary Dx); Vaginal odor 05/16/2025 Travel 05/06/2025 1:20 PM EDT Office Visit [facility] Medicine [address] [place] [address] Cristal Kramer APRN Bacterial vaginosis (Primary Dx); Vitamin B12 deficiency 05/06/2025 Travel from Last 3 Months Family History Medical [...] any time in the past 12 m [facility], were you homeless or living in a long term (including now)? Patient declined 03/05/2025 AUDIT-C Answer [...] Visit Obstetrics & Gynecology [address] [place] [address] Fred Dave MD [address] [place] [address] Health Maintenance Due Date Last Done Comments [facility]-DTaP,Tdap,and Td Vaccines (1 - Tdap) 1984 [facility]-Pneumococcal Vaccine: 50+ Years (1 of 2 - PCV) 1984 CT Colonography 2010 FIT-DNA 2010 FIT 2010 FOBT 2010 Sigmoidoscopy 2010 [facility]-Zoster Vaccines (1 of 2) 2015 [id number]-[id number]-82 Vaccine (1 - season) 2025 [facility]-Influenza Vaccine (#1) 2025 [facility]-RSV Vaccine: 60+ Years or (1 - Risk 60-74 years 1-dose series) 2025 [facility]- SDOH Screenings 09/05/2025 [facility]-Adult SDOH Screenings 09/05/2025 03/05/2025 [facility]-/Child/Adol SDOH Screenings 09/05/2025 03/05/2025 [facility]-Depression Screening 07/10/2026 [...] Ketones, Urine Trace(A) Negative mg/dL POCT Specific [place], Urine 1.025 POCT Blood, Urine Negative Negative POCT pH, Urine 5.5 5.0 to 8.0 POCT Protein, Urine Trace(A) Negative mg/dL POCT Urobilinogen, Urine 1 0.2, 1 E.U./dL POCT Nitrite, Urine Negative Negative POCT Leukocyte Esterase, Urine Negative Negative Test Strip Lot Number [id number] Test Strip Lot Expiration [id number] Urine Urine specimen obtained by clean catch procedure / Unknown 07/10/2025 11:38 AM EDT Cristal Kramer MACHINE REBUILDER POINT OF CARE TEST ENTER/ED IT ORDERABLES Final Result * Colonoscopy External Result (05/21/2025) Anatomical Region Laterality Modality Endoscopy Narrative 05/21/2025 Ordered by an unspecified provider. us External Provider GI PROCEDURE ORDERABLES Final Result * Colonoscopy External Result (05/21/2025) Anatomical Region Laterality Modality Endoscopy Narrative 05/21/2025 Ordered by an unspecified provider. us External Provider GI PROCEDURE ORDERABLES Final Result * Referred ThinPrep Pap and HPV (SO) (05/16/2025 1:55 PM EDT) Pap, Source Cx/Vagina 05/23/2025 5:48 PM EDT [facility] ([facility]) EER Referred ThinPrep Pap and HPV See Note 05/23/2025 5:48 PM EDT [facility] ([facility]) PAP, THINPREP Normal 05/23/2025 5:48 PM EDT [facility] ([facility]) High Risk HPV Normal 05/23/2025 5:48 PM EDT [facility] ([facility]) Swab Vaginal and cervical cytologic material / Unknown Non-blood Collection / Unknown 05/16/2025 1:55 PM EDT 05/16/2025 6:34 PM EDT Narrative MELI ORELLANA) - 05/23/2025 5:48 PM EDT Authorized individuals can access the TrackerSphere Enhanced Report with an [employer] Connect account using the following link. Your local lab can assist you in obtaining the patient report if you don't have a Connect account. [email or web address] Performed By: [facility] [address] [place] [id number] Email Marketing Manager: Paulino Jackman MD, PhD CLIA Number: [id number] SPECIMEN PART A. Cervical, Endocervical, Vaginal, ThinPrep Pap (Ice Cream Vendor) FINAL DIAGNOSIS INTERPRETATION: Negative for Intraepithelial Lesion or Malignancy. SPECIMEN ADEQUACY:Satisfactory for evaluation. Endocervical/transformation zone component present. Electronically Signed Out : ctctn Performed by: [facility] [address] [place] [address] [place] [address] Prema Lerma MD, HR-HPV: Negative Test performed by the FDA-approved e|tabgic (Gen-Probe) APTIMA HPV test, which detects HPV genotypes: 16, 18, 31, 33, 35, 39, 45, 51, 52, 56, 58, 59, 66, and 68. This assay has been cleared for the specimen types listed below. Other specimen types have not been validated for this assay. -Clinician-collected ThinPrep Pap cervical specimens. Performed by: [facility] [facility] [address] [place] [address] [place] [address] Prema Lerma MD, us Fred Dave MD LAB REF LAB BLOOD AND FLUID ORD Final Result MELI ORELLANA) [address] [place] [address] * Mammography External Results (04/01/2025) Anatomical Region Laterality Modality Mammography Narrative 04/01/2025 Ordered by an unspecified provider. us External Provider IMG BI PROCEDURES Final Result * HIV 1 & 2 Antibody/Antigen Screen (03/05/2025 2:15 PM EDT) HIV 1 & 2 Antibody/Antigen Screen Non Reactive Non Reactive 03/05/2025 7:01 PM EDT [facility] Comment:Screening for HIV 1 & 2 antibodies, and P24 antigen is NONREACTIVE. No confirmatory testing is required. Blood Venous blood specimen / Unknown Venipuncture / Unknown 03/05/2025 2:15 PM EDT 03/05/2025 2:15 PM EDT Cristal Kramer APRN LAB BLOOD ORDERABLES Final Result Performing Organization Address [facility] Co de Phone Number [facility] [address] [place] [address] * Hepatitis C Antibody w/Reflex to HCV Quant PCR (03/05/2025 2:15 PM EDT) Hepatitis C Antibody Negative Negative 03/05/2025 7:01 PM EDT [facility] Blood Venous blood specimen / Unknown Venipuncture / Unknown 03/05/2025 2:15 PM EDT 03/05/2025 2:15 PM EDT Cristal Kramer APRN LAB BLOOD ORDERABLES Final Result Performing Organization Address City/[facility]/ZIP Co de Phone Number [facility] [address] [place] [address] from Last 3 Months or Most Recently Relevant to Health Maintenance Insurance [employer] [facility] MEDICAID Care Teams Workforce Specialist Relationship Specialty Start Date End Date Cristal Kramer, MACHINE REBUILDER Formerly named [facility] [place] [address] [place] [address] PCP - General Family Medicine 03/05/25"
--- OUTSIDE RECORDS SUMMARY | 2025-08-05 08:00 | XMS_ITS | Encounter Summary ---
Author Organization [facility] Address [address] [place] [address] Care Team Providers Care Wax Ball Molder Name Role Phone Cristal Kramer REINFORCING IRON WORKER HELPER Primary Care Provider [phone] Reason for Visit * Reason Onset Date Comments Med Refill 06/07/2025 Encounter Details Date Type Department Care Team (Late st Contact Info) Description 06/07/2025 Refill [facility] [address] [place] [address] Cristal Kramer, REINFORCING IRON WORKER HELPER [address] [place] [address] Mild intermittent asthma without complication [...] th e electric, gas, oil, or water [employer] threatened to shut off services in your [...] EDT Procedure Visit Obstetrics & Gynecology [address] [place] [address] Fred Dave MD [address] [place] [address] documented as of this encounter [...] documented as of this encounter Care Teams Wax Ball Molder Relationship Specialty Start Date End Date Cristal Kramer APRN [address] [place] [address] PCP - General Family Medicine 03/05/25 documented as of this encounter
--- OUTSIDE RECORDS SUMMARY | 2025-08-05 08:00 | XMS_ITS | Encounter Summary ---
Author Organization Healthcare Address [address] [place] [address] Care Team Providers Care Manager Of Operations Name Role Phone Cristal Kramer APRN Primary Care Provider [phone] Kathleen Ann Unavailable Unavailable Reason for Visit * Reason Comments Health Maint. Encounter Details Date Type Department Care Team (Late st Contact Info) Description 07/14/2025 Patient Outreach POPULATION HEALTH [address] [facility], [address] [place] [address] Kathleen Ann Health Maint. Social [...] time in the past 12 m [facility], were you homeless or living in a [...] Outcome: Requested colonoscopy records via fax from [facility] per provider request. [x] RR Status: Submitted [x] Program Enrollment and tasks set for additional outreach Follow-up scheduled for: 07/28/2025 Additional Information (if needed): N/A Completed by: Kathleen Ann documented in this encounter Plan of Treatment Upcoming Encounters Date Type Department Care Team (Late st Contact Info) Description 05/18/2026 1:30 PM EDT Procedure Visit Obstetrics & Gynecology [address] [place] [address] Fred Dave MD [address] [place] [address] documented as of this encounter [...] documented as of this encounter Care Teams Manager Of Operations Relationship Specialty Start Date End Date Cristal Kramer APRN [address] [place] [address] PCP - General Family Medicine 03/05/25 Wages, Kathleen Mota Clinical Property Supervisor 07/14/2507/14 documented as of this encounter
--- OUTSIDE RECORDS SUMMARY | 2025-08-05 08:00 | XMS_ITS | Encounter Summary ---
Author Organization Healthcare Address [address] [place] [address] Care Team Providers Care Telephone Solicitor Name Role Phone Cristal Kramer APRN Primary Care Provider [phone] Kathleen Ann Unavailable Unavailable Reason for Visit * Reason Comments Health Maint. RR Encounter Details Date Type Department Care Team (Late st Contact Info) Description 07/14/2025 Patient Outreach POPULATION HEALTH [address] [facility], [address] [place] [address] Kathleen Ann Health Maint. (RR) [...] any time in the past 12 m [facility], were you homeless or living in a fpc (including now)? Patient declined 03/05/2025 AUDIT-C Answer [...] completed: Follow-up Outcome: Received colonoscopy records from [facility] via fax. [x] RR Status: Received [x] No follow-up needed Follow-up scheduled for: N/A Additional Information (if needed): N/A Completed by: Kathleen Ann documented in this encounter Plan of Treatment Upcoming Encounters Date Type Department Care Team (Late st Contact Info) Description 05/18/2026 1:30 PM EDT Procedure Visit Obstetrics & Gynecology [address] [place] [address] Fred Dave MD [address] [place] [address] documented as of this encounter [...] documented as of this encounter Care Teams Telephone Solicitor Relationship Specialty Start Date End Date Cristal Kramer APRN [address] [place] [address] PCP - General Family Medicine 03/05/25 Wages, Kathleen Mota Clinical Direct Marketing Representative 07/14/2507/14 documented as of this encounter
--- OUTSIDE RECORDS SUMMARY | 2025-08-05 08:00 | XMS_ITS | Encounter Summary ---
Author Organization [facility] Address [address] [place] [address] Care Team Providers Care Township Supervisor Name Role Phone Cristal Kramer CONSTRUCTION GRIP Primary Care Provider [phone] Reason for Visit * Reason Onset Date Comments Prior-authorization/insurance Verification 05/27 Encounter Details Date Type Department Care Team (Late st Contact Info) Description 05/27/2025 Telephone [facility] [address] [place] [address] Cristal Kramer, CONSTRUCTION GRIP [address] [place] [address] Prior-authorization/ins urance Verification Social History [...] in the past 12 m [facility], were you homeless or living in [...] EDT Procedure Visit Obstetrics & Gynecology [address] [place] [address] Fred Dave MD [address] [place] [address] documented as of this encounter [...] documented as of this encounter Care Teams Township Supervisor Relationship Specialty Start Date End Date Cristal Kramer APRN [address] [place] [id number] PCP - General Family Medicine 03/05/25 documented as of this encounter
--- OUTSIDE RECORDS SUMMARY | 2025-08-05 08:00 | XMS_ITS | Encounter Summary ---
Author Organization [facility] Address [address] [place] [address] Care Team Providers Care Oxyacetylene Cutter Name Role Phone Cristal Kramer APRN Primary Care Provider [phone] Kathlene Ann Unavailable Unavailable Reason for Visit * Reason Comments Med Refill Encounter Details Date Type Department Care Team (Late st Contact Info) Description 04/24/2025 Refill [facility] [address] [place] [address] Cristal Kramer, KHADIJAH [address] [place] [address] Vitamin D deficiency Social History [...] any time in the past 12 m [facility], were you homeless or living in a jail (including now)? Patient declined 03/05/2025 Safety and [...] Visit Obstetrics & Gynecology [address] [place] [address] Fred Dave MD [address] [place] [address] documented as of this encounter Visit Diagnoses Diagnosis Vitamin D deficiency documented in this encounter Additional Health Concerns Assessment Noted Time PHQ-9 Depression Total Score: 0 03/05/20 1:14 PM EDT A Body Mass Index follow-up plan has been documented for the patient 04/02/2025 3:54 PM EDT documented as of this encounter Care Teams Oxyacetylene Cutter Relationship Specialty Start Date End Date Cristal Kramer APRN [address] [place] [address] PCP - General Family Medicine 03/05/25 Kathleen Ann Clinical Cardiovascular Technologist 07/14/2507/14 documented as of this encounter
--- OUTSIDE RECORDS SUMMARY | 2025-08-05 08:00 | XMS_ITS | Encounter Summary ---
Author Organization [facility] Address [address] [place] [address] Care Team Providers Care Towboat Engineer Name Role Phone Cristal Kramer CARD TAPE CONVERTER OPERATOR Primary Care Provider [phone] Kathleen Ann Unavailable Unavailable Reason for Visit * Reason Comments Med Refill Encounter Details Date Type Department Care Team (Late st Contact Info) Description 06/23/2025 Refill [facility] [address] [place] [address] Cristal Kramer, CARD TAPE CONVERTER OPERATOR [address] [place] [address] Bilateral primary osteoarthritis of knee [...] any time in the past 12 m [facility], were you homeless or living in a longterm (including now)? Patient declined 03/05/2025 AUDIT-C Answer [...] EDT Procedure Visit Obstetrics & Gynecology [address] [place] [address] Fred Dave MD [address] [place] [address] documented as of this encounter [...] documented as of this encounter Care Teams Towboat Engineer Relationship Specialty Start Date End Date Cristal Kramer, KHADIJAH [address] [place] [address] PCP - General Family Medicine 03/05/25 Kathleen Ann Clinical Journeyman [place] 07/14/2507/14 documented as of this encounter
--- OUTSIDE RECORDS SUMMARY | 2025-08-05 08:00 | XMS_ITS | Encounter Summary ---
Author Organization [facility] Address [address] [place] [address] Care Team Providers Care Apartment Locator Name Role Phone Cristal Kramer APRN Primary Care Provider [phone] Encounter Details Date Type Department Care Team [...] any time in the past 12 m [facility], were you homeless or living in a alf (including now)? Patient declined 03/05/2025 AUDIT-C Answer [...] Visit Obstetrics & Gynecology [address] [place] [address] Fred Dave MD [address] [place] [address] documented as of this encounter [...] documented as of this encounter Care Teams Apartment Locator Relationship Specialty Start Date End Date Cristal Kramer APRN [address] [place] [address] PCP - General Family Medicine 03/05/25 documented as of this encounter
[2025-08-05 08:25] LABS: Blood Urea Nitrogen 13 mg/dl (7-17); Creatinine,Serum 0.80 mg/dl (0.52-1.04); Estimated Glomerular Filt Rate 73 ml/min (>60); GFR (African American) 89 ML/MIN (>60)
[2025-08-05] MEDS: IOPAMIDOL-370 (76%);100ML BOTTLE 75 ML IV (08:43)
[2025-08-05] MEDS: SODIUM CHLORIDE 0.9% 10ML SYR (RAD ONLY) 10 ML IV (08:43)
== END 2025-08-05 23:59 | disposition home or self-care (01) ==
LOC: RAD 07:57
PROVIDERS: PCP Nurse Practitioner Family; Visit Provider Nurse Practitioner Family
DX: N28.1 Cyst of kidney, acquired (principal); N28.89 Other specified disorders of kidney and ureter; R93.421 Abnormal radiologic findings on diagnostic imaging of right kidney
CPT/HCPCS: 36415; 74170; 82565; 84520; Q9967

== ENCOUNTER 2025-08-25 06:36 | Day surgery (SDC) | payer OTHER, SELFPAY ==
--- NOTE | 2025-08-20 08:53 | SUR.PREOP ---
v.o. per MD johnson for pt to receive (2) fleets enemas NM day of procedure
--- NOTE | 2025-08-21 07:09 | EXP.HP ---
History of Present Illness *Admission Date: 08/25/25 *History of present illness: Mrs. Anne is a 60-year-old female who is here for screening/surveillance sigmoidoscopy. She did undergo colonoscopy on May 21, 2025 and had a large 3.2 cm rectal polyp (tubulovillous adenoma with multifocal high-grade dysplasia) removed via endoscopic mucosal resection. Additionally, she did have 4 smaller polyps (small serrated adenomas x 2 and hyperplastic polyps x 2) removed. The examination is deemed medically necessary for screening/surveillance sigmoidoscopy. The patient has been seen, interviewed and examined prior to the procedure by both myself and the anesthesia provider. [facility] Disclaimer: The information contained in this section may have been updated after the patient was seen, as this information can be updated by other users. Medical History COPD (chronic obstructive pulmonary disease) Sleep apnea Anxiety Depression History of cataract Hyperlipidemia Surgical History History of cholecystectomy Delivery by section S/P carpal tunnel release Family History Other Family history of cancer Social History Smoking Status: Current some day smoker alcohol intake: current substance use type: denies use current occupational status: unemployed Travel in the last 8 weeks?: None Have you lived/traveled outside US in past 30 days?: No Contact w/someone who lives/traveled outside US past 30 days?: No Exposure to someone with infectious disease in past 14 days?: No Do you have a fever (greater than 100.4 F or 38 C)?: No Have you tested positive for COVID-19?: No Exposed to someone with COVID-19 in past 14 days?: No Do you have a sore throat?: No Do you have a cough?: No Do you have any weakness?: No Are you experiencing any nausea/vomitting?: No Do you have any diarrhea?: No Are you experiencing any unusual bleeding?: No Do you have any muscle aches/pain?: No Do you have any abdominal pain?: No Are you experiencing loss of taste or smell?: No Review of Systems Review of Systems Review of systems (narrative): Negative *Cardiovascular Comments: Negative *Gastrointestinal Comments: Negative *Genitourinary Comments: Negative *Musculoskeletal Comments: Negative *Neurologic Comments: Negative Meds Home Medications and Allergies Home Medications ?Medication ?Instructions ?Recorded ?Confirmed ?Type budesonide-formoterol HFA 80 1 inh inhalation BID 05/19/25 08/25/25 History mcg-4.5 mcg/actuation aerosol inhaler (Symbicort) quetiapine 25 mg tablet 25 mg PO HS 05/19/25 08/25/25 History rosuvastatin 10 mg tablet 10 mg PO DAILY 05/19/25 08/25/25 History sodium,potassium,mag sulfates 17.5 See Rx Instructions PO .COMPLEX 08/11/25 08/25/25 Rx gram-3.13 gram-1.6 gram oral soln #354 mL (Suprep Bowel Prep Kit) New Prescriptions to Start Prescriptions: Allergies Allergy/AdvReac Type Severity Reaction Status Date / Time codeine Allergy Swelling Verified 08/25/25 07:35 of Lip/Tongue/Throat Exam *Routine HEENT Exam Head: Present normocephalic Eye: Present EOMI and PERRL ENT: Present mucous membranes moist *Routine Neck Exam Neck: Present supple *Routine Respiratory Exam Respiratory: Present CTA bilaterally *Routine Cardiovascular Exam Cardiovascular: Present RRR *Routine Abdominal Exam Abdominal: Present soft and normoactive bowel sounds; Absent tenderness *Routine Rectal Exam Rectal:: deferred *Routine Genitalia Exam Genitalia:: deferred *Routine Extremities Exam Extremities: Absent cyanosis, clubbing or edema *Routine Skin Exam Skin: Present warm; Absent rash *Routine Neurological Exam Neurological: Present alert and oriented X3 Assessment and Plan *Assessment and plan (1) Tubulovillous adenoma polyp of rectum: Status: Acute Category: Medical Code(s): D12.8 - Benign neoplasm of rectum (2) High grade dysplasia in colonic adenoma: Status: Acute Category: Medical Code(s): D12.6 - Benign neoplasm of colon, unspecified Plan A/P: 1. Tubulovillous adenoma of rectum with focal high-grade dysplasia is the preprocedural diagnosis. Sigmoidoscopy performed to ensure no residual polyp. The patient will be anesthetized/sedated using MAC sedation. The patient has been seen and examined. Cardiac and lung assessment prior to the examination is stable. Proceed with planned sigmoidoscopy.
[2025-08-21 10:45] VITALS: BMI 38.2
--- NOTE | 2025-08-25 06:57 | HMH.PROCNOTE ---
[facility] Procedure Note Date: 08/25/25 Time: 08:21 Procedure Note:: Flexible Sigmoidoscopy Procedure Report: Sigmoidoscopy with cold snare polypectomy and soft coagulation/ablation Endoscopist: Rito Zaldivar II, MD Referring physician: JOHNY Capellan [facility], [address] [facility], [place] [address] Date of Procedure: August 25, 2025 Equipment: Olympus 180 variable stiffness pediatric colonoscope Sedation: MAC sedation Indication: Mrs. Anne is a 60-year-old female who is here for screening/surveillance sigmoidoscopy. She did undergo initial colonoscopy on May 21, 2025 and had a large 3.2 cm rectal polyp (tubulovillous adenoma with multifocal high-grade dysplasia) removed via endoscopic mucosal resection. Additionally, she did have 4 smaller polyps (small serrated adenomas x 2 and hyperplastic polyps x 2) removed. The patient reports no abdominal pain, weight loss, change in her bowel habits or rectal bleeding. She reports no family history of colon cancer. The examination is deemed medically necessary for screening/surveillance sigmoidoscopy. Procedure: Prior to the procedure, a history and physical exam was performed, and patient's medications and allergies were reviewed. The risks, benefits and alternatives of the sedation and procedure were discussed with the patient. All questions were answered and informed consent was obtained. The patient was brought to the procedure room. Patient identification and proposed procedure were verified by the physician and the nurse. The patient was placed in a left lateral decubitus position and the scope was passed under direct vision. Throughout the procedure, the patient's blood pressure, pulse, and oxygen saturations were monitored continuously. The colonoscopy was accomplished without difficulty. The patient tolerated the procedure well. Findings: On digital rectal examination, there was normal rectal tone. The colonoscope was then inserted through the anal canal into the rectum and advanced to 30 cm. Upon withdrawal of the colonoscope, there were a few shallow diverticula in the sigmoid colon. Within the rectum there was a very flat area of residual rectal polyp that was approximately 8 to 9 mm. This was completely resected using the cold snare. The site of polypectomy removal was completely coagulated using soft coagulation to prevent residual regrowth. Impression: 1. Small residual rectal polyp (flat 8 to 9 mm) status post complete removal with soft coagulation polypectomy site Plan: I will recommend repeat screening/surveillance colonoscopy again in 3 years.
[2025-08-25] MEDS: SODIUM PHOS/BIPHOSPHATE FLEET 133ML ENEMA 266 ML RC (07:00)
[2025-08-25 07:02] VITALS: BP 141/103; PULSE 71; RESP 16; TEMP 36.4; O2SAT 97; BMI 38.2
[2025-08-25] MEDS: LACTATED RINGERS 1000ML 1,000 ML 50 ML IV (07:39)
--- NOTE | 2025-08-25 07:42 | P.PNANES_ITS ---
[facility] Disclaimer: The information contained in this section may have been updated after the patient was seen, as this information can be updated by other users. Medical History COPD (chronic obstructive pulmonary disease) Sleep apnea Anxiety Depression History of cataract Hyperlipidemia Surgical History History of cholecystectomy Delivery by section S/P carpal tunnel release Family History Other Family history of cancer Social History Smoking Status: Current some day smoker alcohol intake: current substance use type: denies use current occupational status: unemployed Travel in the last 8 weeks?: None Have you lived/traveled outside US in past 30 days?: No Contact w/someone who lives/traveled outside US past 30 days?: No Exposure to someone with infectious disease in past 14 days?: No Do you have a fever (greater than 100.4 F or 38 C)?: No Have you tested positive for COVID-19?: No Exposed to someone with COVID-19 in past 14 days?: No Do you have a sore throat?: No Do you have a cough?: No Do you have any weakness?: No Are you experiencing any nausea/vomitting?: No Do you have any diarrhea?: No Are you experiencing any unusual bleeding?: No Do you have any muscle aches/pain?: No Do you have any abdominal pain?: No Are you experiencing loss of taste or smell?: No [facility] Anesthesia Checklist Patient Identification Patient Identification: Arm Band and Verbal (Name & ) Structural Data Admitted From: Home Planned Operative Procedure/s: flex sig Consent for Planned Operative Procedure(s) Verified: Yes Verified Documents: Surgical Consent and History and Physical NPO Status Verified Time NPO: 00:00 Additional verifications Anesthesia Reactions: No Previous Colonoscopy: Yes Airway Assessment Mallampati Score:: Class II Dentition: Dentures-good fit Neurological Assessment Level of Consciousness: Awake, Alert and Appropriate Anesthesia Plan Anesthesia Risk discussed: Yes Anesthesia Plan: Verified ASA Class: II Anesthesia Type: MAC
[2025-08-25 08:23] VITALS: BP 107/65; PULSE 64; RESP 18; TEMP 36.4; O2SAT 96
[2025-08-25 08:33] VITALS: BP 134/93; PULSE 63; RESP 18; O2SAT 97
[2025-08-25 08:43] VITALS: BP 126/72; PULSE 65; RESP 18; O2SAT 98
[2025-08-25 08:53] VITALS: BP 121/60; PULSE 64; RESP 18; TEMP 36.4; O2SAT 98
== END 2025-08-25 09:07 | disposition home or self-care (01) ==
PROVIDERS: PCP Nurse Practitioner Family; Visit Provider Internal Medicine Gastroenterology
PROC: 0DJD8ZZ Inspection of Lower Intestinal Tract, Via Natural or Artificial Opening Endoscopic (ICD-10-PCS; CPT 45330; principal; 2025-08-25 08:00)
DX: Z12.11 Encounter for screening for malignant neoplasm of colon (principal); D12.8 Benign neoplasm of rectum; D12.6 Benign neoplasm of colon, unspecified; K57.30 Diverticulosis of large intestine without perforation or abscess without bleeding; F17.200 Nicotine dependence, unspecified, uncomplicated; E78.5 Hyperlipidemia, unspecified; J44.9 Chronic obstructive pulmonary disease, unspecified
CPT/HCPCS: 45338; J2003; J2704; J7120